=== PATIENT | female | born 1940 | race Caucasian/White ===

== ENCOUNTER 2017-07-19 10:56 | Day surgery (SDC) | payer MEDICARE, BC ==
[~2017-07-19 10:56] MED LIST: ALPRAZolam 0.25 MG TAB PO PRN; ASPIRIN 325 MG TAB PO STA; SODIUM CHLORIDE 0.9% 1,000 ML in EMPTY BAG 1 BAG IV ONE
[2017-07-19] MEDS ORDERED: METOPROLOL TARTRATE 25 MG TAB PO STA (11:27)
[2017-07-19] MEDS ORDERED: LISINOPRIL 20 MG TAB PO STA (11:27)
[2017-07-19] MEDS ORDERED: amLODIPine 5 MG TAB PO STA (11:27)
[2017-07-19] MEDS ORDERED: amLODIPine 5 MG TAB ONE (11:29)
[2017-07-19] MEDS ORDERED: METOPROLOL TARTRATE 50 MG TAB ONE (11:30)
[2017-07-19 11:49] LABS: Glucose,Whole Blood 160 mg/dL (75-99)
[2017-07-19] MEDS ORDERED: MIDAZOLAM 2 MG/2 ML VIAL IV ONE (12:25)
[2017-07-19] MEDS ORDERED: LIDOCAINE 2% INJ 20 MG/ML SQ ONE (12:28)
[2017-07-19] MEDS ORDERED: fentaNYL (PF) 50 MCG/ML 2 ML AMP IV ONE (12:31)
[2017-07-19] MEDS ORDERED: IODIXANOL 320 MG/ML 100 ML INTRAARTER ONE (12:35)
[2017-07-19] MEDS ORDERED: SODIUM CHLORIDE 0.9% 1,000 ML IV SCH (12:45)
[2017-07-19] MEDS ORDERED: ENALAPRILAT 1.25 MG/ML 1 ML VIAL ONE (13:00)
[2017-07-19] MEDS ORDERED: hydrALAZINE HCL 20 MG/ML 1 ML VIAL ONE (13:00)
--- NOTE | 2017-07-19 13:54 | IR ---
Fluoroscopy HISTORY: Pain bilateral legs 1.6 minutes fluoroscopy time supplied to the referring clinician. 114 intraoperative C-arm images do cument the procedure. See dictated report from cardiology.
[2017-07-19 15:48] VITALS: BMI 22.0
[2017-07-19 17:18] LABS: Glucose,Whole Blood 189 mg/dL (75-99)
[2017-07-19 20:26] VITALS: BP 142/63; PULSE 68; RESP 18; TEMP 98
--- NOTE | 2017-07-20 08:27 | AN ---
ANGIOGRAPHY REPORT DATE OF SERVICE: 07/19/2017 PERFORMING PHYSICIAN: Slava Delarosa MD, policy writer. PROCEDURE PERFORMED: 1. An abdominal aortogram. 2. Bilateral lower extremities runoff. INDICATION: This is a pleasant 77-year-old female patient who is known to have severe PAD, who was experiencing bilateral lower extremities intermittent claudication and was brought today to undergo a peripheral angiogram. APPROACH: Right common femoral artery. COMPLICATION: None. LEVEL OF SEDATION: Moderate with sedation length of 15 minutes. PROCEDURE DESCRIPTION: After obtaining an informed consent, the patient was brought to cardiac labor operator. The right common femoral artery was cannulated using micropuncture technique and a micropuncture wire passed easily. Then a 5-Anguillan sheath in the right common femoral artery. After that, I did an abdominal aortogram and bilateral lower extremity runoff using 5-Anguillan pigtail catheter. The procedure was completed without any complication. SELECTIVE PERIPHERAL ANGIOGRAM: 1. The aorta has mild disease only. 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 2. Common iliac arteries: The right and left common iliac arteries are angiographically normal. 3. Internal iliac arteries: The right and left internal iliac arteries are patent. 4. External iliac arteries: The right and left external iliac arteries are patent. 5. Common femoral arteries: The right and left common femoral arteries are patent. 6. Profunda: The right and left profunda are normal angiographically. 7. The SFA: The right SFA has critical lesion in the proximal portion, which seems to be in-stent restenosis and the left SFA is occluded in the midportion as well. 8. Popliteal: The right and left popliteal appeared to have moderate disease. 9. Below the knee: There are one-vessel runoff below the knee bilaterally with peroneal. CONCLUSION: 1. Mild aortoiliac disease with patent stent in the left common iliac artery. 2. 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 3. Severe dvzmm-sar-novd disease with one-vessel runoff. POSTPROCEDURE MANAGEMENT: The patient will be scheduled to undergo a DRY PLASTERER HELPER of the right and left SFA. MMODL / IJN: [id number] /
== END 2017-07-19 20:15 | disposition home health service (06) ==
LOC: CATHCVL 10:56 → 3OBS 12:35 → CATHCVL 20:15
PROVIDERS: ATTEND Internal Medicine Interventional Cardiology
DX: I70.213 Atherosclerosis of native arteries of extremities with intermittent claudication, bilateral legs (principal); T82.856A Stenosis of peripheral vascular stent, initial encounter; I71.9 Aortic aneurysm of unspecified site, without rupture; I25.10 Atherosclerotic heart disease of native coronary artery without angina pectoris; I10 Essential (primary) hypertension; E78.2 Mixed hyperlipidemia; Z95.820 Peripheral vascular angioplasty status with implants and grafts; Z95.1 Presence of aortocoronary bypass graft; E03.9 Hypothyroidism, unspecified; E11.9 Type 2 diabetes mellitus without complications; Z79.84 Long term (current) use of oral hypoglycemic drugs; I77.9 Disorder of arteries and arterioles, unspecified; Z79.02 Long term (current) use of antithrombotics/antiplatelets; Z79.82 Long term (current) use of aspirin; Z79.1 Long term (current) use of non-steroidal anti-inflammatories (NSAID); Z79.899 Other long term (current) drug therapy; Z88.2 Allergy status to sulfonamides
CPT/HCPCS: 36200; 75625; 75716; C1894; C1769 ×4; J2001; J2250; J0360; Q9967; J3010

== ENCOUNTER 2017-08-15 14:03 | Day surgery (SDC) | payer MEDICARE, BC ==
[~2017-08-15 14:03] MED LIST changes: -ALPRAZolam 0.25 MG TAB PO PRN; -ASPIRIN 325 MG TAB PO STA
[2017-08-15 14:31] LABS: Glucose,Whole Blood 150 mg/dL (75-99)
[2017-08-15] MEDS ORDERED: MIDAZOLAM 2 MG/2 ML VIAL IVP ONE (15:52)
[2017-08-15] MEDS ORDERED: LIDOCAINE 2% INJ 20 MG/ML SQ ONE (15:55)
[2017-08-15] MEDS ORDERED: SODIUM CHLORIDE 0.9% 1,000 ML IV ONE (15:55)
[2017-08-15] MEDS ORDERED: HEPARIN SODIUM 1,000 UN/ML (10ML VL) IV ONE ×2 (15:57→16:56)
[2017-08-15] MEDS ORDERED: fentaNYL (PF) 50 MCG/ML 2 ML AMP IVP ONE (16:25)
[2017-08-15] MEDS ORDERED: hydrALAZINE HCL 20 MG/ML 1 ML VIAL IV ONE (17:03)
[2017-08-15] MEDS ORDERED: NITROGLYCERIN SL TABS 0.4 MG TAB SUBLINGUAL PRN (17:33)
[2017-08-15] MEDS ORDERED: IODIXANOL 320 MG/ML 100 ML INTRAARTER ONE (17:33)
[2017-08-15] MEDS ORDERED: ISOSORBIDE MONONITRATE ER 30 MG TAB.ER.24H PO PRN (17:33)
[2017-08-15] MEDS ORDERED: CLOPIDOGREL 75 MG TAB PO ONE (17:36)
[2017-08-15] MEDS ORDERED: SODIUM CHLORIDE 0.9% 1,000 ML IV SCH (17:45)
--- NOTE | 2017-08-15 18:21 | LTR ---
DATE OF SERVICE: August 15, [address] Enriquez: Ms. Meagan Lees underwent successful balloon angioplasty and stenting of the left femoral artery with good angiographic results and without any complication. Thank you for allowing me to participate in her care. MMANNMARIEL / IJN: [id number] /
[2017-08-15 20:52] LABS: Glucose,Whole Blood 225 mg/dL (75-99)
[2017-08-15] MEDS ORDERED: PRAVASTATIN SODIUM 80 MG TAB PO SCH (21:00)
[2017-08-15 21:06] VITALS: TEMP 97.5; BMI 21.1
[2017-08-15] MEDS: IBUPROFEN 600 MG TAB PO PRN (21:21)
--- NOTE | 2017-08-15 21:21 | AN ---
ANGIOGRAPHY REPORT DATE OF SERVICE: August 15, 2017 PERFORMING PHYSICIAN: Slava Delarosa MD, it programmer analyst. PROCEDURE PERFORMED: 1. Selective left [id number]-[id number]-rdva angiogram. 2. Selective left popliteal angiogram. 3. Successful balloon angioplasty of the left popliteal artery. 4. Successful stenting of the left popliteal artery using 7.0 x 120 and 7.0 x 120 mm Zilver PTX drug coated stent with good angiographic results. 5. An attempted atherectomy of the left SFA. 6. IVUS of the left SFA and left popliteal. INDICATION: This is a pleasant 77-year-old female patient who is known to have peripheral arterial disease and she was experiencing bilateral lower extremities intermittent claudication. She underwent a peripheral angiogram and that revealed critical right SFA and occluded left SFA. She was brought today to undergo an intervention on the left SFA. APPROACH: Right common femoral artery. COMPLICATION: None. LEVEL OF SEDATION: Moderate with sedation length of 1 hour and 33 minutes. PROCEDURE DESCRIPTION: After obtaining informed consent, the patient was brought to cardiac geophysical laboratory director. The right common femoral artery was cannulated using micropuncture technique and a micropuncture wire passed easily. Then I placed a 6-Portuguese sheath 11 cm in the right common femoral artery. At that point, anticoagulation was initiated using heparin and the patient was given weight-based heparin. Subsequently I did select the left SFA using 5-Portuguese rim catheter with 035 advantage wire. Then I did exchange my 11 cm sheath into 55 cm sheath using the 035 advantage wire. After that I did selective left fcvih-xsb-uzos angiogram, selective left popliteal angiogram, selective left SFA angiogram. After that I did cross the chronic total occlusion of the mid left SFA using an 018 wire. After that, I did inject through the SFA distal to the PROMOTION MANAGER cap to prove that I was in the true lumen. After that, I did attempt doing atherectomy of the left SFA using the TurboHawk device. I was unable to advance the device. At that point, I did balloon angioplasty initially using 4.0 x 200 mm balloon and then using 5.0 x 200 AngioSculpt balloon. 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 At that point I decided to do stenting of the left SFA, so I did deploy a 2 7 mm stent by 120 mm stent of Silver PTX drug coated stent. Both stents were positioned under fluoroscopy guidance and deployed. I postdilated the stent using 6 mm bone. The following angiogram showed good angiographic results. For the left popliteal lesion, I did balloon angioplasty using a drug coated balloon and that was 6 mm drug coated balloon with a reasonable angiographic results. There was a lesion proximal in the very proximal left SFA just proximal to the proximal stent and there was an outflow dissection. I did balloon angioplasty using 5 mm drug coated balloon. The following angiogram continues to show dissection but was non flow- limiting dissection. At that point, I decided to leave that alone. The procedure was completed without any complication. I did exchange my 55 cm sheath into 11 cm sheath using the 035 advantage wire. The procedure was completed without any complication. POST PROCEDURE MANAGEMENT: 1. Dual anti-platelet therapy. 2. Risk factors modifications. 3. Follow up with the patient. MMODL / IJN: [id number] /
[2017-08-16] MEDS ORDERED: ATROPINE SULFATE 0.1 MG/ML 10ML SYRINGE ONE (00:07)
[2017-08-16] MEDS: IBUPROFEN 600 MG TAB PO PRN (02:40)
[2017-08-16 05:55] LABS: Glucose,Whole Blood 164 mg/dL (75-99)
[2017-08-16 05:58] LABS: Glucose,Whole Blood 165 mg/dL (75-99)
[2017-08-16] MEDS ORDERED: LEVOTHYROXINE 88 MCG TAB PO SCH (06:30)
[2017-08-16] MEDS ORDERED: INSULIN ASPART 100 UNIT/ML 1 ML 10 ML VIAL SQ SCH (07:30)
[2017-08-16] MEDS ORDERED: PANTOPRAZOLE 40 MG TABLET PO SCH (07:30)
[2017-08-16 07:49] VITALS: BP 162/67; PULSE 80; RESP 16
[2017-08-16] MEDS ORDERED: CLOPIDOGREL 75 MG TAB PO SCH ×2 (09:00)
[2017-08-16] MEDS ORDERED: ASPIRIN 325 MG TAB PO SCH ×2 (09:00)
[2017-08-16] MEDS ORDERED: LISINOPRIL 20 MG TAB PO SCH (09:00)
[2017-08-16] MEDS ORDERED: METOPROLOL TARTRATE 25 MG TAB PO SCH (09:00)
[2017-08-16] MEDS ORDERED: amLODIPine 5 MG TAB PO SCH (09:00)
[2017-08-16] MEDS ORDERED: LORATADINE 10 MG TAB PO SCH (09:00)
[2017-08-16] MEDS ORDERED: CITALOPRAM HYDROBROMIDE 20 MG TAB PO SCH (09:00)
[2017-08-16] MEDS ORDERED: MULTIVITAMINS, THERA 1 EACH TAB PO SCH (12:00)
[2017-08-16] MEDS ORDERED: CHOLECALCIFEROL 1,000 UNIT TAB PO SCH (12:00)
[2017-08-16 12:51] LABS: Hemoglobin A1C 8.4 % (4.0-6.0)
--- NOTE | 2017-08-16 13:07 | DS ---
DISCHARGE SUMMARY DATE OF ADMISSION: 08/15/2017. DATE OF DISCHARGE: 08/16/2017 BRIEF HISTORY: This is a pleasant 77-year-old female patient who was admitted to the hospital yesterday and underwent successful crossing chronic total occlusion of the left SFA along with successful balloon angioplasty and stenting of the left SFA with good angiographic results. The procedure was performed from the right groin which is soft and nontender and without any bruises. The patient is going to be discharged home on dual anti-platelet therapy and statin and I will follow up with the patient next week in the office. MMODL / IJN: [id number] /
--- NOTE | 2017-08-16 15:28 | IR ---
Fluoroscopy HISTORY:chronic occlusion, peripheral vascular disease 25 minutes fluoroscopy time supplied to the referring clinician. 900 intraoperative C-arm images doc ument the procedure. See dictated report from cardiology.
== END 2017-08-16 10:08 | disposition home or self-care (01) ==
LOC: CATHCVL 14:03 → 6SEL 17:29 → CATHCVL 08-16 10:08
PROVIDERS: ATTEND Internal Medicine Interventional Cardiology
DX: I70.213 Atherosclerosis of native arteries of extremities with intermittent claudication, bilateral legs (principal); I77.77 Dissection of artery of lower extremity; I25.10 Atherosclerotic heart disease of native coronary artery without angina pectoris; I10 Essential (primary) hypertension; E11.9 Type 2 diabetes mellitus without complications; E78.5 Hyperlipidemia, unspecified; I47.1 Supraventricular tachycardia; Z95.1 Presence of aortocoronary bypass graft; Z82.49 Family history of ischemic heart disease and other diseases of the circulatory system; Z79.84 Long term (current) use of oral hypoglycemic drugs; Z79.02 Long term (current) use of antithrombotics/antiplatelets; Z79.82 Long term (current) use of aspirin; Z79.899 Other long term (current) drug therapy; Z88.2 Allergy status to sulfonamides
CPT/HCPCS: 37226 ×2; 37252; 82565; 83036; C1894 ×2; C1725 ×3; C1769 ×5; C1714; C1753; C2623; C1874; J2001; J2250; J0360; Q9967; J3010; J1644

== ENCOUNTER 2020-08-03 14:55 | Inpatient (IN) | payer MEDICARE, BC ==
[2020-08-03] MEDS ORDERED: SODIUM CHLORIDE 0.9% 500 ML 500 ML IV STA (15:14)
[2020-08-03] MEDS ORDERED: ADENOSINE 3 MG/ML 2 ML VIAL IVP STA (15:14)
[2020-08-03 15:29] LABS: Basophils # (A) 0.1 k/uL (0-0.2); Basophils % (A) 1 %; Eosinophils # (A) 0.2 k/uL (0-0.7); Eosinophils % (A) 2 %; HCT 41.6 % (34.0-46.0); HGB 13.5 gm/dL (11.4-16.0); Lymphocytes # (A) 1.9 k/uL (1.0-4.8); Lymphocytes % (A) 22 %; MCH 29.5 pg (25.0-35.0); MCHC 32.5 g/dL (31.0-37.0); MCV 90.9 fL (80.0-100.0); Mean Platelet Volume 9.6; Monocytes # (A) 0.5 k/uL (0-1.0); Monocytes % (A) 5 %; Neutrophils # (A) 6.2 k/uL (1.3-7.7); Neutrophils % (A) 70 %; Platelet Count 257 k/uL (150-450); RBC 4.57 m/uL (3.80-5.40); RDW 13.6 % (11.5-15.5); WBC 8.9 k/uL (3.8-10.6)
[2020-08-03 15:40] LABS: Partial Thromboplastin Time 22.3 sec (22.0-30.0)
--- NOTE | 2020-08-03 15:40 | ED ---
General Adult HPI - General Chief complaint: Chest Pain Stated complaint: possible stemi Time Seen by Provider: 08/03/20 14:59 Source: patient, EMS, RN notes reviewed, old records reviewed Mode of arrival: EMS Limitations: no limitations - History of Present Illness Initial comments: 80-year-old female presenting for evaluation of chest pain. Patient was transported by EMS, given aspirin and nitroglycerin. She was found to be in a neuro complex tachycardia with ischemic changes. She was transported as a priority 1. She had no active chest pain during transport for upon arrival to the emergency department. No associated dyspnea. She states that when her chest pain began approximately 3 hours prior to arrival she had some nausea and diaphoresis associated with this. She has a history of CAD status post CABG. - Related Data Home Medications Medication Instructions Recorded Confirmed Benazepril HCl [Lotensin] 20 mg PO DAILY 10/21/14 08/13/17 Citalopram Hydrobromide [CeleXA] 20 mg PO DAILY 10/21/14 08/13/17 Levothyroxine Sodium [Synthroid] 88 mcg PO DAILY 10/21/14 08/13/17 Pantoprazole Sodium 40 mg PO DAILY 10/21/14 08/15/17 Pravastatin Sodium [Pravachol] 80 mg PO HS 10/21/14 08/15/17 amLODIPine BESYLATE [Norvasc] 5 mg PO DAILY 10/21/14 08/15/17 Aspirin 325 mg PO DAILY 02/23/16 08/13/17 glipiZIDE XL [Glucotrol XL] 5 mg PO DAILY 02/23/16 08/13/17 Ibuprofen 600 mg PO DAILY PRN 07/12/17 08/13/17 Isosorbide Mononitrate ER [Imdur] 30 mg PO DIRECTED PRN 07/12/17 08/13/17 Loratadine [Claritin] 10 mg PO DAILY 07/12/17 08/13/17 Metoprolol Tartrate [Lopressor] 25 mg PO DAILY 07/12/17 08/13/17 Cholecalciferol [Vitamin D3 (25 2,000 unit PO DAILY 08/13/17 08/15/17 Mcg = 1000 Iu)] Multivitamins, Thera [Multivitamin 1 tab PO DAILY 08/13/17 08/15/17 (formulary)] Previous Rx's Medication Instructions Recorded Clopidogrel [Plavix] 75 mg PO DAILY #90 tab 10/21/15 Nitroglycerin Sl Tabs [Nitrostat] 0.4 mg SUBLINGUAL Q5M PRN #25 tab 02/25/16 Allergies Allergy/AdvReac Type Severity Reaction Status Date / Time shellfish derived [Shellfish] Allergy Nausea & Verified 08/13/17 11:15 Vomiting & Diarrhea Sulfa (Sulfonamide Allergy Rash/Hives Verified 08/13/17 11:15 Antibiotics) Review of Systems ROS Statement: Those systems with pertinent positive or pertinent negative responses have been documented in the HPI. ROS Other: All systems not noted in ROS Statement are negative. Past Medical History Past Medical History: Coronary Artery Disease (CAD), Chest Pain / Angina, CVA/TIA, Diabetes Mellitus, GERD/Reflux, Hearing Disorder / Deafness, Hyperlipidemia, Hypertension, Osteoarthritis (OA), Thyroid Disorder, Vascular Disorder Additional Past Medical History / Comment(s): HX FATTY LIVER, SINUS PROBLEMS AT TIMES, SEASONAL ALLERGIES, TIA, MURMUR. PAIN IN RT THIGH, LT CALF WITH WALKING. History of Any Multi-Drug Resistant Organisms: None Reported Past Surgical History: Coronary Bypass/CABG, Heart Catheterization, Hysterectomy, Orthopedic Surgery, Tubal Ligation Additional Past Surgical History / Comment(s): RIGHT KNEE SURGERY, CATARACT SURGERY, ABD AORTOGRAM W/ RUNOFF, LT ILIAC ARTERY ANGIOGRAM W/STENT X4. CABG-5 VESSELS. Past Anesthesia/Blood Transfusion Reactions: No Reported Reaction Past Psychological History: Anxiety, Depression Smoking Status: Never smoker Past Alcohol Use History: Rare Past Drug Use History: None Reported - Past Family History Father Family Medical History: Coronary Artery Disease (CAD) Sister(s) Family Medical History: CVA/TIA, Deep Vein Thrombosis (DVT) General Exam Limitations: no limitations General appearance: alert, appears intoxicated Head exam: Present: atraumatic, normocephalic Eye exam: Present: normal appearance, PERRL ENT exam: Present: normal exam Neck exam: Present: normal inspection. Absent: tenderness, meningismus Respiratory exam: Present: normal lung sounds bilaterally. Absent: respiratory distress, wheezes Cardiovascular Exam: Present: normal rhythm, tachycardia GI/Abdominal exam: Present: soft. Absent: distended, tenderness, guarding Extremities exam: Present: normal inspection, normal capillary refill. Absent: pedal edema, calf tenderness Neurological exam: Present: alert, oriented X3, CN II-XII intact. Absent: motor sensory deficit Psychiatric exam: Present: normal affect, normal mood Skin exam: Present: warm, dry, intact. Absent: cyanosis, diaphoretic Course Vital Signs 08/03/20 14:56 Temperature 98.2 F Pulse Rate 137 H Respiratory 18 Rate Blood Pressure 164/96 O2 Sat by Pulse 96 Oximetry - Reevaluation(s) Reevaluation #1: 08/03/20 15:39 Patient given 6 mg of adenosine, converts to sinus rhythm. Reevaluation #2: 08/03/20 15:[address] Patterson who will admit EKG Findings - EKG Comments: EKG Findings:: EKG obtained at 15 00, sinus tachycardia although I suspect this is SVT, this is no complex tachycardia, rate of 140, there is no ischemic change in the precordial leads, no ST segment elevation. I do not see a P wave., QRS duration 82, QTC 439. Repeat EKG at 1517, sinus rhythm with first-degree AV block rate of 78, TX interval 302, QRS duration 92, QTC 458, improved depression in the precordial leads no ST segment elevation. Medical Decision Making - Medical Decision Making 80-year-old female sitting with episode of chest pain, and tachycardia dysrhythmia. Initial EKG showing ischemic changes with ST segment depression in the precordial leads, this is fast narrow complex tachycardia, rate of 140. I suspect this was SVT or atrial flutter with 2-1. Patient was given 6 g of adenosine and converted to sinus rhythm with significantly improved ischemic changes. She remained chest pain-free while in the emergency department, a pressure stable. Initial laboratory testing reveals normal CBC, normal CMP, minimal BNP elevation at 2200, chest x-ray is clear with no clinical findings of acute CHF. Case has been discussed with Dr. Patterson who will admit. She will be admitted for telemetry, cardiology consultation. Diagnosis: SVT, unstable angina. - Lab Data Result diagrams: 08/03/20 15:18 08/03/20 15:18 Lab Results 08/03/20 08/03/20 08/03/20 Range/Units 15:18 15:18 15:18 WBC 8.9 (3.8-10.6) k/uL RBC 4.57 (3.80-5.40) m/uL Hgb 13.5 (11.4-16.0) gm/dL Hct 41.6 (34.0-46.0) % MCV 90.9 (80.0-100.0) fL MCH 29.5 (25.0-35.0) pg MCHC 32.5 (31.0-37.0) g/dL RDW 13.6 (11.5-15.5) % Plt Count 257 (150-450) k/uL MPV 9.6 Neutrophils % 70 % Lymphocytes % 22 % Monocytes % 5 % Eosinophils % 2 % Basophils % 1 % Neutrophils # 6.2 (1.3-7.7) k/uL Lymphocytes # 1.9 (1.0-4.8) k/uL Monocytes # 0.5 (0-1.0) k/uL Eosinophils # 0.2 (0-0.7) k/uL Basophils # 0.1 (0-0.2) k/uL PT 11.0 (9.0-12.0) sec INR 1.0 (<1.2) APTT 22.3 (22.0-30.0) sec Sodium 134 L (137-145) mmol/L Potassium 4.2 (3.5-5.1) mmol/L Chloride 99 (98-107) mmol/L Carbon Dioxide 25 (22-30) mmol/L Anion Gap 10 mmol/L BUN 18 H (7-17) mg/dL Creatinine 0.61 (0.52-1.04) mg/dL Est GFR (CKD-EPI)AfAm >90 (>60 ml/min/1.73 sqM) Est GFR (CKD-EPI)NonAf 85 (>60 ml/min/1.73 sqM) Glucose 312 H (74-99) mg/dL Calcium 9.3 (8.4-10.2) mg/dL Magnesium 1.6 (1.6-2.3) mg/dL Total Bilirubin 0.4 (0.2-1.3) mg/dL AST 35 (14-36) U/L ALT 22 (4-34) U/L Alkaline Phosphatase 53 (38-126) U/L Troponin I (0.000-0.034) ng/mL NT-Pro-B Natriuret Pep pg/mL Total Protein 7.8 (6.3-8.2) g/dL Albumin 4.3 (3.5-5.0) g/dL Amylase 47 (30-110) U/L 08/03/20 08/03/20 Range/Units 15:18 15:18 WBC (3.8-10.6) k/uL RBC (3.80-5.40) m/uL Hgb (11.4-16.0) gm/dL Hct (34.0-46.0) % MCV (80.0-100.0) fL MCH (25.0-35.0) pg MCHC (31.0-37.0) g/dL RDW (11.5-15.5) % Plt Count (150-450) k/uL MPV Neutrophils % % Lymphocytes % % Monocytes % % Eosinophils % % Basophils % % Neutrophils # (1.3-7.7) k/uL Lymphocytes # (1.0-4.8) k/uL Monocytes # (0-1.0) k/uL Eosinophils # (0-0.7) k/uL Basophils # (0-0.2) k/uL PT (9.0-12.0) sec INR (<1.2) APTT (22.0-30.0) sec Sodium (137-145) mmol/L Potassium (3.5-5.1) mmol/L Chloride (98-107) mmol/L Carbon Dioxide (22-30) mmol/L Anion Gap mmol/L BUN (7-17) mg/dL Creatinine (0.52-1.04) mg/dL Est GFR (CKD-EPI)AfAm (>60 ml/min/1.73 sqM) Est GFR (CKD-EPI)NonAf (>60 ml/min/1.73 sqM) Glucose (74-99) mg/dL Calcium (8.4-10.2) mg/dL Magnesium (1.6-2.3) mg/dL Total Bilirubin (0.2-1.3) mg/dL AST (14-36) U/L ALT (4-34) U/L Alkaline Phosphatase (38-126) U/L Troponin I 0.029 (0.000-0.034) ng/mL NT-Pro-B Natriuret Pep 2200 pg/mL Total Protein (6.3-8.2) g/dL Albumin (3.5-5.0) g/dL Amylase (30-110) U/L Critical Care Time Critical Care Time: Yes Total Critical Care Time: 35 Disposition Clinical Impression: SVT (supraventricular tachycardia), Unstable angina pectoris Disposition: ADMITTED IP TO THIS [facility] Condition: Stable Is patient prescribed a controlled substance at d/c from ED?: No Referrals: Miguelito Enriquez DO [Primary Care Provider] - 1-2 days Decision to Admit Reason: Admit from EC Decision Date: 08/03/20 Decision Time: 16:16
[2020-08-03 15:41] LABS: ALT 22 U/L (4-34); AST 35 U/L (14-36); African American GFR (CKD) >90 (>60 ml/min/1.73 sqM); Albumin 4.3 g/dL (3.5-5.0); Alkaline Phosphatase 53 U/L (38-126); Amylase 47 U/L (30-110); Anion Gap 10 mmol/L; Blood Urea Nitrogen 18 mg/dL (7-17); Calcium 9.3 mg/dL (8.4-10.2); Carbon Dioxide 25 mmol/L (22-30); Chloride 99 mmol/L (98-107); Glucose 312 mg/dL (74-99); Magnesium 1.6 mg/dL (1.6-2.3); Non-African American GFR(CKD) 85 (>60 ml/min/1.73 sqM); Potassium 4.2 mmol/L (3.5-5.1); Sodium 134 mmol/L (137-145); Total Bilirubin 0.4 mg/dL (0.2-1.3); Total Protein 7.8 g/dL (6.3-8.2)
--- NOTE | 2020-08-03 15:41 | XR ---
EXAMINATION TYPE: XR chest 1V portable DATE OF EXAM: 08/03/2020 Comparison: 02/23/2016 Clinical History: 80-year-old female chest pain Findings: Pacing pads have been placed on the chest. Median sternotomy wires are present. Heart upper limits of normal in size. Atherosclerotic arch calcifications. No consolidation or pleural effusion. Cholecyst ectomy clips. IMPRESSION: No acute cardiopulmonary process.
[2020-08-03] MEDS ORDERED: HEPARIN SODIUM,PORCINE 5,000 UNIT/ML 1 ML VIAL IV PRN (16:12)
[2020-08-03] MEDS ORDERED: HEPARIN SODIUM,PORCINE 5,000 UNIT/ML 1 ML VIAL IV ONE (16:12)
[2020-08-03] MEDS ORDERED: ACETAMINOPHEN TAB 325 MG TAB PO PRN (16:13)
[2020-08-03] MEDS ORDERED: NALOXONE 0.4 MG/ML 1 ML VIAL IV PRN (16:13)
[2020-08-03] MEDS ORDERED: MORPHINE SULFATE 4 MG/ML SYRINGE IV PRN (16:13)
[2020-08-03] MEDS ORDERED: ALPRAZolam 0.25 MG TAB PO PRN (17:08)
[2020-08-03] MEDS: SODIUM CHLORIDE 0.9% 1,000 ML IV SCH (17:27)
[2020-08-03] MEDS: HEPARIN SOD,PORK IN 0.45% NACL 25,000 UNIT in 0.45% NACL 1 250ML.BAG IV SCH (17:27)
--- NOTE | 2020-08-03 18:00 | HP ---
HISTORY AND PHYSICAL DATE OF SERVICE: 08/03/2020 CHIEF COMPLAINTS: Chest pain and tachycardia. HISTORY OF PRESENT ILLNESS: This 80-year-old woman with a past medical history of multiple medical problems, including CAD, history of CVA, TIA, diabetes mellitus, GERD, hypertension, hyperlipidemia, history of DJD, being followed by Dr. Enriquez in the outpatient setting, was complaining of chest pain. The pain was felt in the anterior part of the chest. EMS gave some aspirin and nitroglycerin. The patient also had some wide- complex tachycardia with some ischemic changes. Patient was taken to [facility], and in the ER the patient was given adenosine, which actually slowed down the heart rate from 140 to normal, indicating the possibility of supraventricular tachycardia. The sodium was 134. Troponin was found to be 0.029, which is rather indeterminate, and a chest x-ray which was reviewed personally by me showed no acute abnormality. The patient was evaluated by Cardiology in 2018 with successful crossing of chronic total occlusion of the SFA along with successful balloon angioplasty and stenting of the left SFA with good angiographic results by Dr. Delarosa. There is no history of any fever, rigor or chills. No history of headache, loss of consciousness, seizures. PAST MEDICAL HISTORY: History of CAD, history of CVA, TIA, diabetes mellitus, GERD, peripheral vascular disease, DJD, CAD, CABG. HOME MEDICATIONS: Glipizide, Norvasc, Pravachol, Protonix, Nitrostat, multivitamins, Lopressor, Claritin, Synthroid, Imdur, Plavix, Celexa, vitamin D3, Lotensin, aspirin. ALLERGIES: SHELLFISH and SULFA. FAMILY HISTORY: History of CVA, TIA, DVT. SOCIAL HISTORY: No history of smoking. No history of alcohol intake. REVIEW OF SYSTEMS: ENT: Diminished hearing. Diminished vision. CARDIOVASCULAR SYSTEM: As mentioned earlier. RESPIRATORY SYSTEM: As mentioned earlier. GI: No nausea, vomiting. : No dysuria or retention. NERVOUS SYSTEM: As mentioned earlier. ALLERGY/IMMUNOLOGY: No asthma, hayfever. MUSCULOSKELETAL: As mentioned earlier. HEMATOLOGY/ONCOLOGY: No history of anemia. ENDOCRINE: As mentioned earlier. CONSTITUTIONAL: As mentioned earlier. DERMATOLOGY: Negative. RHEUMATOLOGY: Negative. PSYCHIATRY: As mentioned earlier. PHYSICAL EXAMINATION: Patient alert and oriented x3. Pulse is 78, blood pressure 152/84, respiration 18, temperature 98.1, pulse ox 98% on room air. HEENT: Conjunctivae normal. Oral mucosa moist. NECK: No jugular venous distention. No carotid bruit. No lymph node enlargement. CARDIOVASCULAR SYSTEM: S1, S2 muffled. No S3. No S4. RESPIRATORY SYSTEM: Breath sounds diminished at the bases. No rhonchi. No crackles. ABDOMEN: Soft, non-tender. No mass palpable. LEGS: No edema. No swelling. NERVOUS SYSTEM: Higher functions as mentioned earlier. Moves all 4 limbs. No focal motor or sensory deficit. LYMPHATICS: No lymph node palpable in neck, axillae or groin. SKIN: No ulcer, rash, bleeding. JOINTS: No active deforming arthropathy. LABS: CBC within normal limits. Sodium 134, potassium 4.2, BUN is 18, creatinine 0.61. ASSESSMENT: 1. Chest pain, possible unstable angina. 2. Possible supraventricular tachycardia with a 2:1 AV block, status post adenosine. 3. Hyponatremia. 4. Left bundle branch block on EKG. 5. Diabetes mellitus, type 2, with hyperglycemia. 6. History of coronary artery disease and coronary artery bypass grafting. 7. History of peripheral vascular disease. 8. History of cerebrovascular accident, transient ischemic attack. 9. Gastroesophageal reflux disease. 10.Hard of hearing. 11.Hypertension. 12.Hyperlipidemia. 13.History of degenerative joint disease. 14.History of hypothyroidism. 15.History of fatty liver. 16.History of cardiac catheterization. 17.History of hysterectomy. 18.History of anxiety, depression. 19.Mild protein-calorie malnutrition with body mass index of 17.6. 20.FULL CODE. RECOMMENDATIONS AND DISCUSSION: In this 80-year-old woman who presented with multiple medical issues, at this time I recommend to continue the current medications, continue symptomatic treatment, continue with IV heparin. Cardiology consultation. Will check TSH. NT-Pro-BNP was 2200. Rule out myocardial infarction. Prognosis is guarded because of the multiple complex medical issues. Continue current medications. A copy of this dictation is being forwarded to Dr. Enriquez, who is the primary physician. The home medications will be reconciled as far as they are confirmed. Discussed with the patient. MMODL / IJN: [id number] /
[2020-08-03 18:35] LABS: Glucose,Whole Blood 171 mg/dL (75-99)
[2020-08-03] MEDS ORDERED: LORATADINE 10 MG TAB PO PRN (19:40)
[2020-08-03] MEDS ORDERED: IBUPROFEN 600 MG TAB PO PRN (19:40)
[2020-08-03 20:07] LABS: Appearance,Urine Clear (Clear); Bilirubin,Urine Negative (Negative); Blood,Urine Negative (Negative); Color,Urine Colorless; Glucose,Urine (UA) Negative (Negative); Ketones,Urine Negative (Negative); Leukocyte Esterase,Urine Negative (Negative); Mucus,Urine Rare /hpf; Nitrite,Urine Negative (Negative); PH, Urine 6.5 (5.0-8.0); Protein,Urine 1+ (Negative); RBC,Urine <1 /hpf (0-5); Specific Gravity,Urine 1.005 (1.001-1.035); Urobilinogen,Urine <2.0 mg/dL (<2.0); WBC,Urine 3 /hpf (0-5)
[2020-08-03 20:15] LABS: Glucose,Whole Blood 115 mg/dL (75-99)
[2020-08-03 20:46] LABS: T4, Free (Free Thyroxine) 0.93 ng/dL (0.78-2.19)
[2020-08-03] MEDS: PRAVASTATIN SODIUM 80 MG TAB PO SCH (21:06)
[2020-08-03] MEDS: lisinopriL 20 MG TAB PO SCH (21:06)
[2020-08-03] MEDS: metFORMIN 500 MG TAB PO SCH (21:06)
[2020-08-03] MEDS: INSULIN ASPART (NovoLOG) 100 UNIT/ML VIAL SQ SCH (21:07)
[2020-08-03] MEDS: METOPROLOL TARTRATE 25 MG TAB PO SCH (21:07)
[2020-08-04 06:02] LABS: Glucose,Whole Blood 162 mg/dL (75-99)
[2020-08-04] MEDS: LEVOTHYROXINE 112 MCG TAB PO SCH (06:55)
[2020-08-04] MEDS: INSULIN ASPART (NovoLOG) 100 UNIT/ML VIAL SQ SCH ×4 (06:55→20:28)
[2020-08-04] MEDS: PANTOPRAZOLE 40 MG TABLET PO SCH (06:55)
[2020-08-04 08:17] LABS: Basophils # (A) 0.1 k/uL (0-0.2); Basophils % (A) 1 %; Eosinophils # (A) 0.3 k/uL (0-0.7); Eosinophils % (A) 4 %; HCT 40.6 % (34.0-46.0); HGB 12.7 gm/dL (11.4-16.0); Lymphocytes # (A) 3.1 k/uL (1.0-4.8); Lymphocytes % (A) 43 %; MCH 29.2 pg (25.0-35.0); MCHC 31.2 g/dL (31.0-37.0); MCV 93.6 fL (80.0-100.0); Mean Platelet Volume 9.8; Monocytes # (A) 0.3 k/uL (0-1.0); Monocytes % (A) 4 %; Neutrophils # (A) 3.3 k/uL (1.3-7.7); Neutrophils % (A) 46 %; Platelet Count 209 k/uL (150-450); RBC 4.34 m/uL (3.80-5.40); RDW 13.7 % (11.5-15.5); WBC 7.1 k/uL (3.8-10.6)
[2020-08-04 08:24] LABS: African American GFR (CKD) >90 (>60 ml/min/1.73 sqM); Anion Gap 9 mmol/L; Blood Urea Nitrogen 17 mg/dL (7-17); Calcium 9.2 mg/dL (8.4-10.2); Carbon Dioxide 25 mmol/L (22-30); Chloride 105 mmol/L (98-107); Glucose 157 mg/dL (74-99); Non-African American GFR(CKD) 82 (>60 ml/min/1.73 sqM); Potassium 4.9 mmol/L (3.5-5.1); Sodium 139 mmol/L (137-145)
[2020-08-04] MEDS: CHOLECALCIFEROL 25 MCG (1000 IU) TABLET PO SCH (08:34)
[2020-08-04] MEDS: METOPROLOL TARTRATE 25 MG TAB PO SCH ×2 (08:34→20:24)
[2020-08-04] MEDS: CITALOPRAM HYDROBROMIDE 20 MG TAB PO SCH (08:34)
[2020-08-04] MEDS: CLOPIDOGREL 75 MG TAB PO SCH (08:34)
[2020-08-04] MEDS: LINAGLIPTIN 5 MG TABLET PO SCH (08:34)
[2020-08-04] MEDS: MULTIVITAMINS, THERA 1 EACH TAB PO SCH (08:35)
[2020-08-04] MEDS: REPAGLINIDE 1 MG TAB PO SCH (08:35)
[2020-08-04] MEDS: metFORMIN 500 MG TAB PO SCH ×2 (08:35→20:23)
[2020-08-04] MEDS: PIOGLITAZONE 30 MG TAB PO SCH (08:36)
[2020-08-04] MEDS ORDERED: lisinopriL 20 MG TAB PO SCH (09:00)
[2020-08-04] MEDS ORDERED: amLODIPine 5 MG TAB PO SCH (09:00)
[2020-08-04 11:52] LABS: Glucose,Whole Blood 112 mg/dL (75-99)
[2020-08-04] MEDS: hydrALAZINE HCL 20 MG/ML 1 ML VIAL IVP PRN ×3 (13:06→23:22)
--- NOTE | 2020-08-04 14:15 | P.CRDCN ---
History of Present Illness Consult date: 08/04/20 Chief complaint: Chest pain History of present illness: This is a pleasant 80-year-old female patient with a past medical history significant for coronary artery disease and prior coronary artery bypass grafting, peripheral arterial disease and prior peripheral revascularization, diabetes and hypertension and dyslipidemia who requested to see as a consult for further evaluation of cardiac arrhythmia. The patient presented to the hospital mainly because of chest discomfort. She described the discomfort as a sharp and in the middle of the chest without any radiation. No symptoms of heart racing or fluttering. No symptoms of shortness of breath. No loss of consciousness or syncope. When she presented to the emergency department the first EKG showed narrow complex tachycardia consistent with SVT with a differential diagnosis of atrial flutter. Subsequently the patient was given adenosine and she was converted to normal sinus mechanism she has been maintaining normal sinus mechanism and as a matter of fact she has been in sinus bradycardia. She was at home receiving metoprolol at 25 mg by mouth twice a day and that was continued during her hospital stay. Beside that she was hypertensive. She was started on lisinopril. She was on Norvasc which I increase it to 10 mg by mouth daily. Also I added hydralazine by mouth to the current medical regimen because she is hypertensive throughout her hospital stay. Currently she is chest pain-free. The EKG was described above. The cardiac enzymes were checked and came in to be slightly abnormal and that could be related to the tachycardia when the patient presented to the hospital. When the patient was seen and examined this morning she is euvolemic. On examination she does have pansystolic murmur at the right upper sternal border and also by the apical area. Past Medical History Past Medical History: Coronary Artery Disease (CAD), Chest Pain / Angina, CVA/TIA, Diabetes Mellitus, GERD/Reflux, Hearing Disorder / Deafness, H yperlipidemia, Hypertension, Osteoarthritis (OA), Thyroid Disorder, Vascular Disorder Additional Past Medical History / Comment(s): HX FATTY LIVER, SINUS PROBLEMS AT TIMES, SEASONAL ALLERGIES, TIA, MURMUR. PAIN IN RT THIGH, LT CALF WITH WALKING. History of Any Multi-Drug Resistant Organisms: None Reported Past Surgical History: Coronary Bypass/CABG, Heart Catheterization, Hysterectomy, Orthopedic Surgery, Tubal Ligation Additional Past Surgical History / Comment(s): RIGHT KNEE SURGERY, CATARACT SURGERY, ABD AORTOGRAM W/ RUNOFF, LT ILIAC ARTERY ANGIOGRAM W/STENT X4. CABG-5 VESSELS. Past Anesthesia/Blood Transfusion Reactions: No Reported Reaction Past Psychological History: Anxiety, Depression Smoking Status: Never smoker Past Alcohol Use History: Rare Past Drug Use History: None Reported - Past Family History Father Family Medical History: Coronary Artery Disease (CAD) Sister(s) Family Medical History: CVA/TIA, Deep Vein Thrombosis (DVT) Medications and Allergies Home Medications Medication Instructions Recorded Confirmed Type Benazepril HCl [Lotensin] 20 mg PO DAILY 10/21/14 08/03/20 History Citalopram Hydrobromide [CeleXA] 20 mg PO DAILY 10/21/14 08/03/20 History Pantoprazole Sodium 40 mg PO DAILY 10/21/14 08/03/20 History Pravastatin Sodium [Pravachol] 80 mg PO HS 10/21/14 08/03/20 History amLODIPine BESYLATE [Norvasc] 5 mg PO DAILY 10/21/14 08/03/20 History Clopidogrel [Plavix] 75 mg PO DAILY #90 tab 10/21/15 08/03/20 Rx Aspirin 325 mg PO DAILY 02/23/16 08/03/20 History Ibuprofen 600 mg PO DAILY PRN 07/12/17 08/03/20 History Metoprolol Tartrate [Lopressor] 25 mg PO BID 07/12/17 08/03/20 History Multivitamins, Thera [Multivitamin 1 tab PO DAILY 08/13/17 08/03/20 History (formulary)] Cetirizine HCl 10 mg PO DAILY PRN 08/03/20 08/03/20 History Cholecalciferol [Vitamin D3 (25 25 mcg PO DAILY 08/03/20 08/03/20 History Mcg = 1000 Iu)] Fluticasone Nasal Bovey [Flonase 1 spray EA NOSTRIL DAILY PRN 08/03/20 08/03/20 History Nasal Bovey] Levothyroxine Sodium [Synthroid] 112 mcg PO DAILY 08/03/20 08/03/20 History Pioglitazone [Actos] 30 mg PO DAILY 08/03/20 08/03/20 History Repaglinide [Prandin] 0.5 mg PO DAILY 08/03/20 08/03/20 History metFORMIN HCL [Glucophage] 1,000 mg PO BID 08/03/20 08/03/20 History sitaGLIPtin [Januvia] 100 mg PO DAILY 08/03/20 08/03/20 History Allergies Allergy/AdvReac Type Severity Reaction Status Date / Time shellfish derived [Shellfish] Allergy Nausea & Verified 08/03/20 18:45 Vomiting & Diarrhea Sulfa (Sulfonamide Allergy Rash/Hives Verified 08/03/20 18:45 Antibiotics) Physical Exam Vitals: Vital Signs Temp Pulse Pulse Resp BP BP BP 08/04/20 13:02 204/82 08/04/20 11:54 97.9 F 55 L 16 203/82 08/04/20 08:00 98.3 F 57 L 16 197/85 08/04/20 04:00 97.9 F 53 L 17 165/78 08/04/20 00:00 97.9 F 50 L 17 181/86 08/03/20 20:00 97.6 F 63 17 218/87 08/03/20 18:50 63 190/77 198/81 08/03/20 17:15 57 L 18 166/62 08/03/20 17:00 98.1 F 78 18 152/84 08/03/20 14:56 98.2 F 137 H 18 164/96 Pulse Ox 08/04/20 13:02 08/04/20 11:54 95 08/04/20 08:00 95 08/04/20 04:00 99 08/04/20 00:00 96 08/03/20 20:00 97 08/03/20 18:50 92 L 08/03/20 17:15 98 08/03/20 17:00 98 08/03/20 14:56 96 Intake and Output 08/03/20 08/04/20 08/04/20 22:59 06:59 14:59 Intake Total 34.946 344.339 Output Total 650 Balance -650 34.946 344.339 Intake: Intake, IV Titration 34.946 47.339 Amount Heparin Sod,Pork in 0.45% 34.946 47.339 NaCl 25,000 unit In 0.45 % NaCl 1 250ml.bag @ 12 UNITS/KG/HR 4.899 mls/hr IV .Q24H [facility] Rx#: [id number] Oral 297 Output: Urine 650 Other: # Voids 1 2 Weight 40.823 kg 44.4 kg - Respiratory Respiratory: bilateral: CTA - Cardiovascular Rhythm: regular Heart sounds: normal: S1, S2 Abnormal Heart Sounds: systolic murmur Results 08/04/20 07:17 08/04/20 07:17 Cardiac Enzymes 08/03/20 08/03/20 08/03/20 Range/Units 15:18 15:18 18:36 AST 35 (14-36) U/L Troponin I 0.029 0.302 H* (0.000-0.034) ng/mL Coagulation 08/03/20 08/03/20 08/04/20 Range/Units 15:18 22:36 07:17 PT 11.0 (9.0-12.0) sec APTT 22.3 34.7 H 36.9 H (22.0-30.0) sec CBC 08/03/20 08/04/20 Range/Units 15:18 07:17 WBC 8.9 7.1 (3.8-10.6) k/uL RBC 4.57 4.34 (3.80-5.40) m/uL Hgb 13.5 12.7 (11.4-16.0) gm/dL Hct 41.6 40.6 (34.0-46.0) % Plt Count 257 209 (150-450) k/uL Comprehensive Metabolic Panel 08/03/20 08/04/20 Range/Units 15:18 07:17 Sodium 134 L 139 (137-145) mmol/L Potassium 4.2 4.9 (3.5-5.1) mmol/L Chloride 99 105 (98-107) mmol/L Carbon Dioxide 25 25 (22-30) mmol/L BUN 18 H 17 (7-17) mg/dL Creatinine 0.61 0.68 (0.52-1.04) mg/dL Glucose 312 H 157 H (74-99) mg/dL Calcium 9.3 9.2 (8.4-10.2) mg/dL AST 35 (14-36) U/L ALT 22 (4-34) U/L Alkaline Phosphatase 53 (38-126) U/L Total Protein 7.8 (6.3-8.2) g/dL Albumin 4.3 (3.5-5.0) g/dL Current Medications Generic Name Dose Route Start Last Admin Trade Name Freq PRN Reason Stop Dose Admin Acetaminophen 650 mg 02/16/21 16:13 Acetaminophen Tab 325 Mg Tab PO Q6HR PRN Mild Pain or Fever > 100.5 Alprazolam 0.25 mg 08/03/20 17:08 Alprazolam 0.25 Mg Tab PO TID PRN Anxiety Amlodipine Besylate 5 mg 08/04/20 21:00 Amlodipine 5 Mg Tab PO BID [facility] Cholecalciferol 25 mcg 08/04/20 09:00 08/04/20 08:34 Cholecalciferol 25 Mcg (1000 Iu) Tablet PO 25 mcg DAILY JANICE Administration Citalopram Hydrobromide 20 mg 08/04/20 09:00 08/04/20 08:34 Citalopram Hydrobromide 20 Mg Tab PO 20 mg DAILY JANICE Administration Clopidogrel Bisulfate 75 mg 08/04/20 09:00 08/04/20 08:34 Clopidogrel 75 Mg Tab PO 75 mg DAILY JANICE Administration Heparin Sodium (Porcine) 0 unit 08/03/20 16:12 Heparin Sodium,Porcine 5,000 Unit/Ml 1 Ml Vial IV PER PROTOCOL PRN Low PTT Protocol Hydralazine HCl 10 mg 08/04/20 12:57 08/04/20 13:06 Hydralazine Hcl 20 Mg/Ml 1 Ml Vial IVP 10 mg Q4HR PRN Administration Blood Pressure - High Heparin Sodium/Sodium Chloride 250 mls @ 4.899 mls/hr 08/03/20 16:15 08/04/20 08:52 25,000 unit/ Sodium Chloride IV 16 units/kg/hr .Q24H JANICE 6.532 mls/hr Titration Protocol 12 UNITS/KG/HR Sodium Chloride 1,000 mls @ 20 mls/hr 08/03/20 16:15 08/03/20 17:27 Saline 0.9% IV 20 mls/hr .Q24H JANICE Administration Ibuprofen 600 mg 08/03/20 19:40 Ibuprofen 600 Mg Tab PO DAILY PRN Pain Insulin Aspart 0 unit 08/03/20 21:00 08/04/20 11:58 Insulin Aspart (Novolog) 100 Unit/Ml Vial SQ Not Given ACHS JANICE Protocol Levothyroxine Sodium 112 mcg 08/04/20 06:30 08/04/20 06:55 Levothyroxine 112 Mcg Tab PO 112 mcg DAILY@0630 JANICE Administration Linagliptin 5 mg 08/04/20 09:00 02/17/21 08:34 Linagliptin 5 Mg Tablet PO 5 mg DAILY JANICE Administration Lisinopril 20 mg 08/03/20 21:00 08/03/20 21:06 Lisinopril 20 Mg Tab PO 20 mg HS JANICE Administration Loratadine 10 mg 08/03/20 19:40 Loratadine 10 Mg Tab PO DAILY PRN Allergy Symptoms Metformin HCl 1,000 mg 08/03/20 21:00 08/04/20 08:35 Metformin 500 Mg Tab PO 1,000 mg BID JANICE Administration Metoprolol Tartrate 25 mg 08/03/20 21:00 08/04/20 08:34 Metoprolol Tartrate 25 Mg Tab PO 25 mg BID JANICE Administration Morphine Sulfate 4 mg 08/03/20 16:13 Morphine Sulfate 4 Mg/Ml Syringe IV Q4HR PRN Severe Pain Multivitamins 1 each 08/04/20 09:00 08/04/20 08:35 Multivitamins, Thera 1 Each Tab PO 1 each DAILY JANICE Administration Naloxone HCl 0.2 mg 08/03/20 16:13 Naloxone 0.4 Mg/Ml 1 Ml Vial IV Q2M PRN Opioid Reversal Pantoprazole Sodium 40 mg 08/04/20 07:30 08/04/20 06:55 Pantoprazole 40 Mg Tablet PO 40 mg AC-BRKFST JANICE Administration Pioglitazone HCl 30 mg 08/04/20 09:00 08/04/20 08:36 Pioglitazone 30 Mg Tab PO 30 mg DAILY JANICE Administration Pravastatin Sodium 80 mg 08/03/20 21:00 08/03/20 21:06 Pravastatin Sodium 80 Mg Tab PO 80 mg HS JANICE Administration Repaglinide 0.5 mg 08/04/20 09:00 08/04/20 08:35 Repaglinide 1 Mg Tab PO 0.5 mg DAILY JANICE Administration Intake and Output 08/03/20 08/04/20 08/04/20 22:59 06:59 14:59 Intake Total 34.946 344.339 Output Total 650 Balance -650 34.946 344.339 Intake: Intake, IV Titration 34.946 47.339 Amount Heparin Sod,Pork in 0.45% 34.946 47.339 NaCl 25,000 unit In 0.45 % NaCl 1 250ml.bag @ 12 UNITS/KG/HR 4.899 mls/hr IV .Q24H JANICE Rx#: [id number] Oral 297 Output: Urine 650 Other: # Voids 1 2 Weight 40.823 kg 44.4 kg 08/04/20 07:17 08/04/20 07:17 Assessment and Plan Assessment: Assessment #1 chest discomfort which has resolved #2 mildly abnormal cardiac enzymes #3 cardiac arrhythmia, SVT with a differential diagnosis of atrial flutter #4 coronary artery disease and prior revascularization #5 peripheral arterial disease and prior vascular his elevation #6 hypertension emergency Plan #1 continue the current dose of metoprolol #2 increase the dose of Norvasc #3 continue lisinopril #4 add hydralazine to the current medical regimen #5 obtain an echocardiogram was Doppler #6 continue adjusting the blood pressure medications as needed #7 restart the patient back on aspirin #8 continue statin We'll continue following up with the patient
--- NOTE | 2020-08-04 15:57 | PN ---
PROGRESS NOTE DATE OF SERVICE: 08/04/2020 This 80-year-old woman was admitted with chest pain also had possible supraventricular tachycardia. Currently the patient has normal sinus rhythm. Cardiology has seen the patient and recommended current medications to increase the dose of Norvasc. The troponins were found to be 0.302, possibly indicating acute aes-DU-ktgokzf-elevation myocardial infarction. TSH is elevated but free T4 is normal. COVID-19 is negative. PHYSICAL EXAMINATION: Alert and oriented x3. Pulse 55, blood pressure 203/82, respirations 16, temperature 97.9, pulse ox 95% on room air. HEENT: Conjunctivae normal. NECK: No jugular venous distention. CARDIOVASCULAR: S1, S2 muffled. RESPIRATORY: Breath sounds diminished at the bases. No rhonchi. No crackles. ABDOMEN: Soft. LEGS: No edema, no swelling. NEVOUS SYSTEM: No focal deficits. LABS: CBC within normal limits. Sodium 139, potassium 4.9. ASSESSMENT: 1. Chest pain possible acute non ST segment elevation myocardial infarction with troponin 0.302. 2. Possible supraventricular tachycardia 2:1 AV block, status post adenosine. 3. Hyponatremia. 4. Left bundle block on EKG. 5. Diabetes mellitus type 2 with hyperglycemia. 6. Accelerated hypertension and hypertensive urgency. 7. History of coronary artery disease, coronary artery bypass grafting. 8. History of peripheral vascular disease. 9. History of cerebrovascular accident, transient ischemic attack. 10.Gastroesophageal reflux disease. 11.Hard of hearing. 12.Hypertension. 13.Hyperlipidemia. 14.History of degenerative joint disease. 15.History of hypothyroidism. 16.History of fatty liver. 17.History of cardiac catheterization. 18.History of hysterectomy. 19.History of anxiety, depression. 20.Mild protein calorie malnutrition with body mass index of 17.6. 21.NO CODE. RECOMMENDATIONS AND DISCUSSION: In this 80-year-old woman who presented with multiple complex medical issues, will continue to monitor symptomatic treatment. Otherwise, Norvasc has been added to the current regimen. IV heparin. Medical management. Prognosis guarded because of multiple complex medical issues. Further recommendations to follow. Cardiology input appreciated. MMODL / IJN: [id number] /
[2020-08-04 16:30] LABS: Glucose,Whole Blood 131 mg/dL (75-99)
[2020-08-04] MEDS: SODIUM CHLORIDE 0.9% 1,000 ML IV SCH (17:46)
[2020-08-04] MEDS: HEPARIN SOD,PORK IN 0.45% NACL 25,000 UNIT in 0.45% NACL 1 250ML.BAG IV SCH (20:05)
[2020-08-04] MEDS: lisinopriL 20 MG TAB PO SCH (20:24)
[2020-08-04] MEDS: amLODIPine 5 MG TAB PO SCH (20:24)
[2020-08-04] MEDS: PRAVASTATIN SODIUM 80 MG TAB PO SCH (20:24)
[2020-08-04 20:36] LABS: Glucose,Whole Blood 148 mg/dL (75-99)
[2020-08-05 06:37] LABS: Glucose,Whole Blood 144 mg/dL (75-99)
[2020-08-05] MEDS: PANTOPRAZOLE 40 MG TABLET PO SCH (06:51)
[2020-08-05] MEDS: INSULIN ASPART (NovoLOG) 100 UNIT/ML VIAL SQ SCH ×4 (06:51→21:07)
[2020-08-05] MEDS: LEVOTHYROXINE 112 MCG TAB PO SCH (06:51)
[2020-08-05] MEDS: CITALOPRAM HYDROBROMIDE 20 MG TAB PO SCH (07:50)
[2020-08-05] MEDS: CHOLECALCIFEROL 25 MCG (1000 IU) TABLET PO SCH ×3 (07:50→08:55)
[2020-08-05] MEDS: metFORMIN 500 MG TAB PO SCH ×2 (07:50→20:35)
[2020-08-05] MEDS: MULTIVITAMINS, THERA 1 EACH TAB PO SCH (07:50)
[2020-08-05] MEDS: ASPIRIN 81 MG PO SCH (07:50)
[2020-08-05] MEDS: LINAGLIPTIN 5 MG TABLET PO SCH (07:50)
[2020-08-05] MEDS: CLOPIDOGREL 75 MG TAB PO SCH (07:50)
[2020-08-05] MEDS: amLODIPine 5 MG TAB PO SCH ×2 (07:51→20:35)
[2020-08-05] MEDS: HEPARIN SOD,PORK IN 0.45% NACL 25,000 UNIT in 0.45% NACL 1 250ML.BAG IV SCH (07:51)
[2020-08-05] MEDS: PIOGLITAZONE 30 MG TAB PO SCH (07:51)
[2020-08-05] MEDS: REPAGLINIDE 1 MG TAB PO SCH (07:51)
[2020-08-05] MEDS: METOPROLOL TARTRATE 25 MG TAB PO SCH ×2 (07:51→20:35)
[2020-08-05 08:20] LABS: Basophils % (A) 1 %; Eosinophils % (A) 0 %; HCT 38.5 % (34.0-46.0); HGB 12.5 gm/dL (11.4-16.0); Lymphocytes # (A) 2.3 k/uL (1.0-4.8); Lymphocytes % (A) 30 %; MCH 29.3 pg (25.0-35.0); MCHC 32.5 g/dL (31.0-37.0); MCV 90.1 fL (80.0-100.0); Mean Platelet Volume 9.8; Monocytes # (A) 0.3 k/uL (0-1.0); Monocytes % (A) 4 %; Neutrophils # (A) 4.7 k/uL (1.3-7.7); Neutrophils % (A) 63 %; Platelet Count 225 k/uL (150-450); RBC 4.28 m/uL (3.80-5.40); RDW 13.9 % (11.5-15.5); WBC 7.5 k/uL (3.8-10.6)
[2020-08-05 08:59] LABS: African American GFR (CKD) >90 (>60 ml/min/1.73 sqM); Anion Gap 11 mmol/L; Blood Urea Nitrogen 18 mg/dL (7-17); Calcium 9.3 mg/dL (8.4-10.2); Carbon Dioxide 23 mmol/L (22-30); Chloride 101 mmol/L (98-107); Glucose 139 mg/dL (74-99); Non-African American GFR(CKD) 80 (>60 ml/min/1.73 sqM); Sodium 135 mmol/L (137-145)
--- NOTE | 2020-08-05 10:25 | P.PN ---
Subjective Progress Note Date: 08/05/20 Principal diagnosis: Coronary artery disease/cardiac arrhythmia This is an 80-year-old female patient with coronary artery disease and prior coronary revascularization as well as peripheral arterial disease and prior revascularization who was admitted to the hospital with symptoms of chest discomfort. During her hospital stay she did have multiple episodes of SVT with a differential diagnosis of atrial flutter. She converted to normal sinus mechanism and she has been maintaining normal sinus mechanism. Also her pressure has been elevated but it came in under good control after we did some adjustment of her medications. The cardiac enzymes were slightly elevated as we ll. The patient was seen today August [id number]. She is asymptomatic. She would like to go home. The blood pressure is better. No more episodes of cardiac arrhythmia. She is insisting on going home today. Objective - Vital Signs Vital signs: Vital Signs Temp 97.5 F L 08/05/20 07:48 Pulse 71 08/05/20 07:48 Resp 16 08/05/20 07:48 BP 146/65 08/05/20 07:48 Pulse Ox 94 L 08/05/20 07:48 Intake & Output 08/04/20 08/05/20 08/05/20 18:59 06:59 18:59 Intake Total 1142.365 228.607 Output Total 300 Balance 1142.365 -300 228.607 Weight 38 kg Intake: Intake, IV Titration 105.365 103.607 Amount Heparin Sod,Pork in 0.45% 105.365 103.607 NaCl 25,000 unit In 0.45 % NaCl 1 250ml.bag @ 12 UNITS/KG/HR 4.899 mls/hr IV .Q24H [facility] Rx#: [id number] Oral 1037 125 Output: Emesis 300 Other: Voiding Method Toilet Toilet # Voids 2 1 - Constitutional General appearance: Present: no acute distress - Respiratory Respiratory: bilateral: CTA - Cardiovascular Rhythm: regular Heart sounds: normal: S1, S2 Abnormal Heart Sounds: Present: systolic murmur - Labs CBC & Chem 7: 08/05/20 07:19 08/05/20 07:19 Labs: Abnormal Lab Results - Last 24 Hours (Table) 08/04/20 08/04/20 08/04/20 Range/Units 11:51 16:29 16:30 APTT 42.2 H (22.0-30.0) sec Sodium (137-145) mmol/L BUN (7-17) mg/dL Glucose (74-99) mg/dL POC Glucose (mg/dL) 112 H 131 H (75-99) mg/dL 08/04/20 08/04/20 08/05/20 Range/Units 20:23 23:35 06:22 APTT 55.8 H (22.0-30.0) sec Sodium (137-145) mmol/L BUN (7-17) mg/dL Glucose (74-99) mg/dL POC Glucose (mg/dL) 148 H 144 H (75-99) mg/dL 08/05/20 08/05/20 Range/Units 07:19 07:19 APTT 53.3 H (22.0-30.0) sec Sodium 135 L (137-145) mmol/L BUN 18 H (7-17) mg/dL Glucose 139 H (74-99) mg/dL POC Glucose (mg/dL) (75-99) mg/dL Assessment and Plan Assessment: Assessment #1 chest discomfort which has resolved #2 mildly abnormal cardiac enzymes #3 cardiac arrhythmia, SVT with a differential diagnosis of atrial flutter #4 coronary artery disease and prior revascularization #5 peripheral arterial disease and prior vascular his elevation #6 hypertension emergency Plan #1 continue the current medical regimen #2 I advised the patient to stay one more night but the patient would like to go home
[2020-08-05 11:04] VITALS: BMI 16.3
[2020-08-05 12:07] LABS: Glucose,Whole Blood 114 mg/dL (75-99)
--- NOTE | 2020-08-05 13:00 | ECHOF ---
Referral Reason:pos trops MEASUREMENTS -------- HEIGHT: 152.4 cm WEIGHT: 37.6 kg BP: 146/65 RVIDd: 3.0 cm (< 3.3) IVSd: 1.3 cm (0.6 - 1.1) LVIDd: 4.1 cm (3.9 - 5.3) LVPWd: 1.1 cm (0.6 - 1.1) IVSs: 1.8 cm LVIDs: 1.9 cm LVPWs: 1.5 cm LA Diam: 3.2 cm (2.7 - 3.8) LAESV Index (A-L): 31.51 ml/m Ao Diam: 3.0 cm (2.0 - 3.7) AV Cusp: 1.5 cm (1.5 - 2.6) MV EXCURSION: 9.588 mm (> 18.000) MV EF SLOPE: 17 mm/s (70 - 150) EPSS: 0.8 cm MV E James: 1.14 m/s MV DecT: 328 ms MV A James: 1.22 m/s MV E/A Ratio: 0.93 AV maxP.60 mmHg AV meanP.32 mmHg AR PHT: 519 ms RAP: 5.00 mmHg RVSP: 34.29 mmHg FINDINGS -------- Resting bradycardia (HR<60bpm). This was a technically adequate study. The left ventricular size is normal. There is mild concentric left ventricular hypertrophy. Overa ll left ventricular systolic function is normal with, an EF between 65 - 70 %. The right ventricle is normal in size. LA is midly dilated 29-33ml/m2. The right atrium is normal in size. Interatrial and interventricular septum intact. There is mild aortic valve sclerosis. There is andg-qt-pbxjdytz aortic regurgitation. There is mi ld aortic stenosis present. Peak/mean gradient across the Aortic Valve is 18.60mmHg / 10.32mmHg. The mitral valve leaflets are mildly thickened. Moderate mitral annular calcification present. Mi ld mitral regurgitation is present. Mild tricuspid regurgitation present. There is borderline pulmonary hypertension. The right ventr icular systolic pressure, as measured by Doppler, is 34.29mmHg. There is no pulmonic regurgitation present. The aortic root size is normal. Normal inferior vena cava with normal inspiratory collapse consistent with estimated right atrial pre ssure of 5 mmHg. There is no pericardial effusion. CONCLUSIONS -------- 1. The left ventricular size is normal. 2. There is mild concentric left ventricular hypertrophy. 3. Overall left ventricular systolic function is normal with, an EF between 65 - 70 %. 4. LA is midly dilated 29-33ml/m2. 5. There is mild aortic valve sclerosis. 6. There is recm-fj-wrsbuvhi aortic regurgitation. 7. There is mild aortic stenosis present. 8. Peak/mean gradient across the Aortic Valve is 18.60mmHg / 10.32mmHg. 9. The mitral valve leaflets are mildly thickened. 10. Moderate mitral annular calcification present. 11. Mild mitral regurgitation is present. 12. Mild tricuspid regurgitation present. 13. There is borderline pulmonary hypertension. 14. The right ventricular systolic pressure, as measured by Doppler, is 34.29mmHg. 15. There is no pulmonic regurgitation present. 16. There is no pericardial effusion. CARGO INSPECTOR: Gabriela Kohli RDCS
--- NOTE | 2020-08-05 15:15 | PN ---
PROGRESS NOTE DATE OF SERVICE: 08/05/2020. This 80-year-old woman who was admitted with chest pain, possible acute nji-TX-dkpnofy elevation myocardial infarction, also had hypertension. Patient also had possible supraventricular tachycardia. Patient being closely monitored. Cardiology recommending further evaluation. A 2D echo with Doppler was done today which was reported showing ejection fraction 65% to 70%. and multiple mild valvular abnormalities including mild aortic stenosis, mild mitral regurgitation and mild tricuspid regurgitation. No chest pain. No palpitations. No fever. PHYSICAL EXAMINATION: Alert and oriented x3. Pulse is 67, blood pressure 141/62, respirations 16, temperature 97.5, pulse ox 94% on room air. HEENT: Conjunctivae normal. NECK: No jugular venous distention. CARDIOVASCULAR: S1, S2 muffled. RESPIRATORY: Breath sounds diminished at the bases. No rhonchi, no crackles. ABDOMEN: Soft, nontender. LEGS: No edema, no swelling. NERVOUS SYSTEM: No focal deficits. LABS: CBC within normal. Accu-Cheks 114. ASSESSMENT: 1. Chest pain possible acute nyp-PB-xaysxwj-elevation myocardial infarction with troponin 0.302. 2. Possible supraventricular tachycardia 2-1 AV block, status post adenosine. 3. Hyponatremia. 4. Left bundle branch block on EKG. 5. Diabetes mellitus type 2 with hyperglycemia. 6. Accelerated hypertension, hypertensive urgency. 7. History of coronary artery disease, coronary artery bypass grafting. 8. History of peripheral vascular disease. 9. History of cerebrovascular accident, transient ischemic attack. 10.Gastroesophageal reflux disease. 11.Hard of hearing. 12.Hypertension. 13.Hyperlipidemia. 14.History of degenerative joint disease. 15.History of hypothyroidism. 16.History of fatty liver. 17.History of cardiac catheterization. 18.History of hysterectomy. 19.History of anxiety, depression. 20.Mild protein calorie malnutrition with body mass index of 17.6. 21.NO CODE, NO CPR, NO VENT. RECOMMENDATIONS AND DISCUSSION: I recommend to continue current medications, continue symptomatic treatment. Adjust the medications. Continue telemetry. Increase ambulation. Guarded prognosis because of multiple complex medical issues. Further recommendations to follow. MMODL / IJN: [id number] /
[2020-08-05 16:53] LABS: Glucose,Whole Blood 141 mg/dL (75-99)
[2020-08-05] MEDS: SODIUM CHLORIDE 0.9% 1,000 ML IV SCH (17:42)
[2020-08-05] MEDS: lisinopriL 20 MG TAB PO SCH (20:35)
[2020-08-05] MEDS: PRAVASTATIN SODIUM 80 MG TAB PO SCH (20:36)
[2020-08-05 20:54] LABS: Glucose,Whole Blood 137 mg/dL (75-99)
[2020-08-05 21:02] VITALS: RESP 18
[2020-08-06] MEDS: INSULIN ASPART (NovoLOG) 100 UNIT/ML VIAL SQ SCH ×3 (06:40→17:09)
[2020-08-06] MEDS: PANTOPRAZOLE 40 MG TABLET PO SCH (06:40)
[2020-08-06] MEDS: LEVOTHYROXINE 112 MCG TAB PO SCH (06:40)
[2020-08-06 06:47] LABS: Glucose,Whole Blood 145 mg/dL (75-99)
[2020-08-06 08:18] LABS: Basophils # (A) 0.1 k/uL (0-0.2); Basophils % (A) 1 %; Eosinophils # (A) 0.2 k/uL (0-0.7); Eosinophils % (A) 2 %; HCT 38.9 % (34.0-46.0); HGB 12.5 gm/dL (11.4-16.0); Lymphocytes # (A) 2.7 k/uL (1.0-4.8); Lymphocytes % (A) 37 %; MCH 29.1 pg (25.0-35.0); MCHC 32.3 g/dL (31.0-37.0); MCV 90.1 fL (80.0-100.0); Mean Platelet Volume 9.2; Monocytes # (A) 0.4 k/uL (0-1.0); Monocytes % (A) 6 %; Neutrophils # (A) 3.8 k/uL (1.3-7.7); Neutrophils % (A) 51 %; Platelet Count 258 k/uL (150-450); RBC 4.32 m/uL (3.80-5.40); RDW 13.7 % (11.5-15.5); WBC 7.4 k/uL (3.8-10.6)
[2020-08-06 08:33] LABS: African American GFR (CKD) >90 (>60 ml/min/1.73 sqM); Anion Gap 15 mmol/L; Blood Urea Nitrogen 23 mg/dL (7-17); Carbon Dioxide 20 mmol/L (22-30); Chloride 101 mmol/L (98-107); Glucose 121 mg/dL (74-99); Non-African American GFR(CKD) 82 (>60 ml/min/1.73 sqM); Potassium 4.3 mmol/L (3.5-5.1); Sodium 136 mmol/L (137-145)
[2020-08-06] MEDS: ASPIRIN 81 MG PO SCH (09:11)
[2020-08-06] MEDS: metFORMIN 500 MG TAB PO SCH (09:11)
[2020-08-06] MEDS: PIOGLITAZONE 30 MG TAB PO SCH (09:11)
[2020-08-06] MEDS: MULTIVITAMINS, THERA 1 EACH TAB PO SCH (09:11)
[2020-08-06] MEDS: REPAGLINIDE 1 MG TAB PO SCH (09:11)
[2020-08-06] MEDS: amLODIPine 5 MG TAB PO SCH (09:12)
[2020-08-06] MEDS: METOPROLOL TARTRATE 25 MG TAB PO SCH (09:12)
[2020-08-06] MEDS: LINAGLIPTIN 5 MG TABLET PO SCH (09:12)
[2020-08-06] MEDS: CLOPIDOGREL 75 MG TAB PO SCH (09:12)
[2020-08-06] MEDS: CITALOPRAM HYDROBROMIDE 20 MG TAB PO SCH (09:12)
[2020-08-06 09:36] VITALS: TEMP 98
[2020-08-06 12:01] LABS: Glucose,Whole Blood 114 mg/dL (75-99)
[2020-08-06] MEDS ORDERED: lisinopriL 20 MG TAB PO STA (13:48)
--- NOTE | 2020-08-06 14:03 | P.PN ---
Subjective Progress Note Date: 08/06/20 HISTORY OF PRESENT ILLNESS: Patient examined this morning the bedside. She denies chest pain or pressure. Denies shortness of breath. Patient has been maintaining sinus mechanism on telemetry. Patient's blood pressure this morning with a systolic in the 140s. Notified by nursing that patient's blood pressure is running in the 180s this afternoon. PHYSICAL EXAM: VITAL SIGNS: Reviewed. GENERAL: Well-developed in no acute distress. NECK: Supple. No JVD or thyromegaly LUNGS: Respirations even and unlabored. Lungs essentially clear to auscultation bilaterally. HEART: Regular rate and rhythm. S1 and S2 heard. Systolic murmur noted. EXTREMITIES: Normal range of motion. No clubbing or cyanosis. Peripheral pulses intact. No lower extremity edema ASSESSMENT: Cardiac arrhythmia, SVT with differential diagnosis of atrial flutter Coronary artery disease with prior revascularization Peripheral arterial disease with prior revascularization Hypertensive emergency PLAN: Lisinopril increased to twice a day dosing Patient is stable from a cardiac standpoint for discharge. She is to follow up outpatient. Nurse practitioner note has been reviewed by physician. Signing provider agrees with the documented findings, assessment, and plan of care. Objective - Vital Signs Vital signs: Vital Signs Temp 98 F 08/06/20 08:20 Pulse 60 08/06/20 12:00 Resp 18 08/06/20 12:00 BP 180/50 08/06/20 13:37 Pulse Ox 94 L 08/06/20 12:00 Intake & Output 08/05/20 08/06/20 08/06/20 18:59 06:59 18:59 Intake Total 593.607 10 240 Output Total 575 Balance 18.607 10 240 Weight 38 kg 45.8 kg Intake: IV 10 0.9 10 Intake, IV Titration 103.607 Amount Heparin Sod,Pork in 0.45% 103.607 NaCl 25,000 unit In 0.45 % NaCl 1 250ml.bag @ 12 UNITS/KG/HR 4.899 mls/hr IV .Q24H [facility]ICE Rx#: [id number] Oral 490 240 Output: Urine 575 Other: Voiding Method Toilet Toilet # Voids 2 1 - Labs CBC & Chem 7: 08/06/20 07:53 08/06/20 07:53 Labs: Abnormal Lab Results - Last 24 Hours (Table) 08/05/20 08/05/20 08/06/20 Range/Units 16:49 20:44 06:38 Sodium (137-145) mmol/L Carbon Dioxide (22-30) mmol/L BUN (7-17) mg/dL Glucose (74-99) mg/dL POC Glucose (mg/dL) 141 H 137 H 145 H (75-99) mg/dL 08/06/20 08/06/20 Range/Units 07:53 12:00 Sodium 136 L (137-145) mmol/L Carbon Dioxide 20 L (22-30) mmol/L BUN 23 H (7-17) mg/dL Glucose 121 H (74-99) mg/dL POC Glucose (mg/dL) 114 H (75-99) mg/dL
[2020-08-06 16:09] VITALS: BP 145/48; PULSE 62
[2020-08-06] MEDS: SODIUM CHLORIDE 0.9% 1,000 ML IV SCH (16:49)
[2020-08-06 16:52] LABS: Glucose,Whole Blood 136 mg/dL (75-99)
[2020-08-06] MEDS ORDERED: lisinopriL 20 MG TAB PO SCH (21:00)
--- NOTE | 2020-08-08 09:27 | DS ---
DISCHARGE SUMMARY DATE OF ADMISSION: 08/03/2020. DATE OF DISCHARGE: 08/06/2020. FINAL DIAGNOSES: 1. Paroxysmal recurrent atrial flutter, POA. 2. Troponin leak secondary to arrhythmia. Not acute coronary syndrome. 3. Coronary artery disease, prior history of coronary artery bypass. 4. Diabetes mellitus type 2. 5. Gastroesophageal reflux disease. 6. Hyperlipidemia. 7. Essential hypertension. 8. Primary osteoarthritis. 9. Hypothyroid. 10.Nonalcoholic hepatic steatosis. 11.Anxiety/depression not otherwise specified. CONSULTATION: Dr. Delarosa from Cardiology. HOSPITAL COURSE: This patient presented through the ER with some chest palpitations. In the hospital she had episodes of recurrent narrow complex tachycardia. Possible atrial flutter per Cardiology. The patient did have a troponin of 0.302. [place] to be from arrhythmia. Not acute coronary syndrome. 2D echocardiogram showed the EF of 65-70 percent. Otherwise nonspecific findings. The patient doing well by the time of discharge. Medications adjusted and patient was symptom free before discharge. PHYSICAL EXAMINATION: Temperature 98, pulse 62. Respiration 18, blood pressure 145/48, pulse ox 95% on room air. Lungs fair entry. Cardiovascular: First and second sounds normal. Psych AO x3. INVESTIGATIONS: White count 7.4, hemoglobin 12.5, potassium 4.3, creatinine 0.69. Troponin I 0.302. TSH 7.9, Free T4 0.93. DISCHARGE MEDICATIONS: 1. Celexa 20 mg a day. 2. Protonix 40 mg a day. 3. Pravachol 80 mg q.h.s. 4. Plavix 75 mg a day. 5. Ibuprofen 600 mg daily p.r.n. 6. Lopressor 25 mg p.o. b.i.d. 7. Multivitamin 1 tablet p.o. daily. 8. Cetirizine 10 mg p.o. daily p.r.n. 9. Vitamin D3 25 mcg daily. 10.Flonase 1 spray each nostril daily. 11.Synthroid 112 mcg p.o. daily. 12.Actos 30 mg p.o. daily. 13.Prandin 0.5 mg p.o. daily. 14.Metformin 1000 mg p.o. b.i.d. 15.Januvia 100 mg p.o. daily. 16.Aspirin 81 mg p.o. daily. 17.Norvasc 5 mg p.o. b.i.d. 18.Lisinopril 20 mg b.i.d. Discontinued medications include Lotensin. DISPOSITION: Home. FOLLOWUP: [facility] up [facility] [address] Enriquez in 1-2 days. MMODL / IJN: [id number] /
== END 2020-08-06 19:45 | disposition home or self-care (01) | DRG 309 ==
LOC: EC 14:55 → 3SCARD 16:13
PROVIDERS: ADMIT Hospitalist; ATTEND Hospitalist
DX: I48.92 Unspecified atrial flutter (principal); Z68.1 Body mass index [BMI] 19.9 or less, adult; E44.1 Mild protein-calorie malnutrition; E87.1 Hypo-osmolality and hyponatremia; Z66 Do not resuscitate; K21.9 Gastro-esophageal reflux disease without esophagitis; I25.10 Atherosclerotic heart disease of native coronary artery without angina pectoris; I44.1 Atrioventricular block, second degree; I44.7 Left bundle-branch block, unspecified; I16.0 Hypertensive urgency; I10 Essential (primary) hypertension; H91.90 Unspecified hearing loss, unspecified ear; F41.9 Anxiety disorder, unspecified; F32.9 Major depressive disorder, single episode, unspecified; E78.5 Hyperlipidemia, unspecified; E11.65 Type 2 diabetes mellitus with hyperglycemia; E11.51 Type 2 diabetes mellitus with diabetic peripheral angiopathy without gangrene; E03.9 Hypothyroidism, unspecified; K76.0 Fatty (change of) liver, not elsewhere classified; M19.91 Primary osteoarthritis, unspecified site; Z20.822 Contact with and (suspected) exposure to COVID-19; Z95.1 Presence of aortocoronary bypass graft; Z90.710 Acquired absence of both cervix and uterus; Z86.73 Personal history of transient ischemic attack (TIA), and cerebral infarction without residual deficits; Z82.49 Family history of ischemic heart disease and other diseases of the circulatory system; Z79.899 Other long term (current) drug therapy; Z79.890 Hormone replacement therapy; Z79.84 Long term (current) use of oral hypoglycemic drugs; Z79.82 Long term (current) use of aspirin; Z79.02 Long term (current) use of antithrombotics/antiplatelets; Z88.2 Allergy status to sulfonamides; Z91.013 Allergy to seafood; Z98.49 Cataract extraction status, unspecified eye; Z98.890 Other specified postprocedural states; Z98.51 Tubal ligation status; Z82.3 Family history of stroke
CPT/HCPCS: 36415; 71045; 80048; 80053; 81001; 82150; 83735; 83880; 84439; 84443; 84484; 85025; 85610; 85730; 87635; 93005; 93306; 96365; 96375; 96376; 99291

== ENCOUNTER 2023-08-30 15:08 | Emergency (ER) | payer MEDICARE, BC ==
--- NOTE | 2023-08-30 17:01 | XR ---
EXAMINATION TYPE: XR shoulder complete 3 views LT DATE OF EXAM: 08/30/2023 Comparison: None Clinical History: 83-year-old female trauma, pain after fall Findings: There is an impacted fracture of the surgical neck of the proximal left humerus. Impaction up to 2.1 cm. Slight anterior displacement anterior apex angulation as well. Minimal joint appears intact as do es the AC joint. At this chronic calcifications throughout the visualized aorta. Coronary stents. Med loc sternotomy wires. Impression: 2 part left humeral head fracture with the surgical neck component impacted by 2.1 cm.
--- NOTE | 2023-08-30 17:09 | CT ---
EXAMINATION TYPE: CT brain mony rubio DATE OF EXAM: 08/30/2023 COMPARISON: None HISTORY: 83-year-old female trauma, Pain after fall CT DLP: 1193.3 mGycm Automated exposure control for dose reduction was used. Technique: Examination of the head was done in axial plane without intravenous contrast. Coronal and sagittal reconstructions performed. CT of the cervical spine was obtained in axial plane without intravenous injection of contrast mater ial. Coronal and sagittal reformatted images were obtained from the axial views for evaluation of f ractures, spinal alignment and canal. FINDINGS: Head: There is no evidence of acute intracranial hemorrhage, acute ischemic changes, mass, mass-effect, or extra-axial fluid collection. There is no effacement of cerebral sulci or basal subarachnoid cister ns. There is no hydrocephalus. There is no midline shift. Cee-white matter distinction is preserv ed. Moderate patchy white matter hypodensities in both cerebral hemispheres. Areas of small cortical encephalomalacia anterior right frontal lobe, posterior left frontal lobe, an d medial right temporal parietal junction with some ex vacuo enlargement of the adjacent lateral vent ricle. Small lacunar infarcts within the bilateral paramedian lei as well. Lacunar infarct right bas al ganglia. Atherosclerotic calcifications in the carotid siphons There is a sinuses and mastoid air cells well pneumatized. Orbits and globes are intact. Cervical spine: Osteopenia. No craniocervical junction abnormality, predental space widening, or prevertebral soft tissue swellin g. Degenerative change of the C1 dens articulation. Degenerative trace grade 1 retrolisthesis C5-C6 and grade 1 anterolisthesis C6-C7. Suspect a remote i nferior endplate deformity C6. No acute fracture seen of the cervical spine. No evident spinal canal compromise identified by CT. There appears to be a small posterior disc protr usion at C4-C5. Scattered facet and uncovertebral joint arthropathy. Variable mild neuroforaminal stenoses throughout . Bilateral palatine tonsillar hypertrophy with numerous bilateral calcifications suggesting sequela of prior infection. Prominent apical scarring calcifications left carotid bifurcation. Sagittal and coronal reformatted images confirm above findings. COMBINED IMPRESSION: 1. Moderate burden of chronic small vessel ischemic disease with scattered small areas of cortical en cephalomalacia suggesting small previous cortical infarcts. Additional lacunar infarct right basal ga nglia and bilateral paramedian lei. 2. No acute intracranial abnormality seen. 3. Moderate multilevel spondylitic change. Degenerative trace grade 1 spondylolisthesis C5-C6 and C6- C7. No acute fracture of the cervical spine. 4. Incidentally, prominent atherosclerotic calcifications of the left carotid bifurcation.
[2023-08-30] MEDS: MORPHINE SULFATE 2 MG/ML SYRINGE IV STA (17:41)
[2023-08-30] MEDS: ONDANSETRON 4 MG/2 ML VIAL IVP STA (17:41)
[2023-08-30 17:44] LABS: Basophils % (A) 0 %; Eosinophils % (A) 0 %; HCT 38.8 % (34.0-46.0); Lymphocytes # (A) 0.9 k/uL (1.0-4.8); Lymphocytes % (A) 9 %; MCH 32.4 pg (25.0-35.0); MCHC 33.4 g/dL (31.0-37.0); MCV 97.1 fL (80.0-100.0); Mean Platelet Volume 9.7; Monocytes # (A) 0.5 k/uL (0-1.0); Monocytes % (A) 5 %; Neutrophils % (A) 84 %; Platelet Count 200 k/uL (150-450); WBC 9.5 k/uL (3.8-10.6)
[2023-08-30 18:00] VITALS: RESP 16
[2023-08-30 18:16] LABS: ALT 32 U/L (4-34); AST 40 U/L (14-36); African American GFR (CKD) >90 (>60 ml/min/1.73 sqM); Albumin 3.9 g/dL (3.5-5.0); Alkaline Phosphatase 49 U/L (38-126); Anion Gap 11 mmol/L; Blood Urea Nitrogen 32 mg/dL (7-17); Calcium 9.4 mg/dL (8.4-10.2); Carbon Dioxide 25 mmol/L (22-30); Chloride 103 mmol/L (98-107); Glucose 229 mg/dL (74-99); Non-African American GFR(CKD) 84 (>60 ml/min/1.73 sqM); Potassium 4.6 mmol/L (3.5-5.1); Sodium 139 mmol/L (137-145); Total Bilirubin 0.4 mg/dL (0.2-1.3); Total Protein 6.7 g/dL (6.3-8.2)
--- NOTE | 2023-08-30 18:43 | ED ---
Fall HPI - General Chief Complaint: Fall Stated Complaint: fall- left shoulder injury Time Seen by Provider: 08/30/23 15:52 Source: patient Mode of arrival: ambulatory - Related Data Home Medications Medication Instructions Recorded Confirmed Citalopram Hydrobromide [CeleXA] 20 mg PO DAILY 10/21/14 08/09/22 Pantoprazole Sodium 40 mg PO DAILY 10/21/14 08/09/22 Metoprolol Tartrate [Lopressor] 25 mg PO BID 07/12/17 08/09/22 Multivitamins, Thera [Multivitamin 1 tab PO DAILY 08/13/17 08/09/22 (formulary)] Cholecalciferol [Vitamin D3 (25 75 mcg PO DAILY 08/03/20 08/09/22 Mcg = 1000 Iu)] Pioglitazone [Actos] 30 mg PO DAILY 08/03/20 08/09/22 metFORMIN HCL [Glucophage] 500 mg PO BID 08/03/20 08/09/22 Ascorbic Acid [Vitamin C] 1,000 mg PO DAILY 07/20/22 08/09/22 Dapagliflozin Propanediol [Farxiga] 10 mg PO DAILY 07/20/22 08/09/22 Isosorbide Mononitrate ER [Imdur] 30 mg PO DAILY 07/20/22 08/09/22 Levothyroxine Sodium [Synthroid] 137 mcg PO DAILY 07/20/22 08/09/22 Nitroglycerin Sl Tabs [Nitrostat] 0.4 mg SL Q5M PRN 07/20/22 08/09/22 Atorvastatin [Lipitor] 40 mg PO HS 08/01/22 08/09/22 Previous Rx's Medication Instructions Recorded Aspirin 81 mg PO DAILY tab 07/22/22 Clopidogrel [Plavix] 75 mg PO DAILY #30 tab 07/22/22 Losartan [Cozaar] 50 mg PO DAILY #30 tab 07/22/22 HYDROcodone/APAP 5-325MG [[place] 1 - 2 tab PO Q6HR PRN 3 Days #12 08/30/23 5-325] tab Allergies Allergy/AdvReac Type Severity Reaction Status Date / Time shellfish derived [Shellfish] Allergy Nausea & Verified 08/30/23 15:26 Vomiting & Diarrhea Sulfa (Sulfonamide Allergy Rash/Hives Verified 08/30/23 15:26 Antibiotics) Review of Systems ROS Statement: Those systems with pertinent positive or pertinent negative responses have been documented in the HPI. ROS Other: All systems not noted in ROS Statement are negative. Past Medical History Past Medical History: Coronary Artery Disease (CAD), Chest Pain / Angina, CVA/TIA, Diabetes Mellitus, GERD/Reflux, Hearing Disorder / Deafness, Hyperlipidemia, Hypertension, Osteoarthritis (OA), Thyroid Disorder, Vascular Disorder Additional Past Medical History / Comment(s): HX FATTY LIVER, SINUS PROBLEMS AT TIMES, SEASONAL ALLERGIES, TIA, MURMUR. PAIN IN RT THIGH, LT CALF WITH WALKING, recent adm. for CP History of Any Multi-Drug Resistant Organisms: None Reported Past Surgical History: Coronary Bypass/CABG, Heart Catheterization, Heart Ruchi terization With Stent, Hysterectomy, Orthopedic Surgery, Tubal Ligation Additional Past Surgical History / Comment(s): RIGHT KNEE SURGERY, CATARACT SURGERY, ABD AORTOGRAM W/ RUNOFF, LT ILIAC ARTERY ANGIOGRAM W/STENT X4. CABG-5 VESSELS. Past Anesthesia/Blood Transfusion Reactions: No Reported Reaction Date of Last Stent Placement:: 07-20-22 Past Psychological History: Anxiety, Depression Smoking Status: Never smoker Past Alcohol Use History: Rare Past Drug Use History: None Reported - Past Family History Father Family Medical History: Coronary Artery Disease (CAD) Sister(s) Family Medical History: CVA/TIA, Deep Vein Thrombosis (DVT) General Exam Limitations: no limitations Course Vital Signs 08/30/23 08/30/23 15:20 17:43 Temperature 98.3 F Pulse Rate 85 78 Respiratory 18 16 Rate Blood Pressure 194/80 186/74 O2 Sat by Pulse 94 L 92 L Oximetry Medical Decision Making - Lab Data Result diagrams: 08/30/23 17:24 08/30/23 17:24 Lab Results 08/30/23 08/30/23 Range/Units 17:24 17:24 WBC 9.5 (3.8-10.6) k/uL RBC 4.00 (3.80-5.40) m/uL Hgb 13.0 (11.4-16.0) gm/dL Hct 38.8 (34.0-46.0) % MCV 97.1 (80.0-100.0) fL MCH 32.4 (25.0-35.0) pg MCHC 33.4 (31.0-37.0) g/dL RDW 14.0 (11.5-15.5) % Plt Count 200 (150-450) k/uL MPV 9.7 Neutrophils % 84 % Lymphocytes % 9 % Monocytes % 5 % Eosinophils % 0 % Basophils % 0 % Neutrophils # 8.0 H (1.3-7.7) k/uL Lymphocytes # 0.9 L (1.0-4.8) k/uL Monocytes # 0.5 (0-1.0) k/uL Eosinophils # 0.0 (0-0.7) k/uL Basophils # 0.0 (0-0.2) k/uL Sodium 139 (137-145) mmol/L Potassium 4.6 (3.5-5.1) mmol/L Chloride 103 (98-107) mmol/L Carbon Dioxide 25 (22-30) mmol/L Anion Gap 11 mmol/L BUN 32 H (7-17) mg/dL Creatinine 0.61 (0.52-1.04) mg/dL Est GFR (CKD-EPI)AfAm >90 (>60 ml/min/1.73 sqM) Est GFR (CKD-EPI)NonAf 84 (>60 ml/min/1.73 sqM) Glucose 229 H (74-99) mg/dL Calcium 9.4 (8.4-10.2) mg/dL Total Bilirubin 0.4 (0.2-1.3) mg/dL AST 40 H (14-36) U/L ALT 32 (4-34) U/L Alkaline Phosphatase 49 (38-126) U/L Total Protein 6.7 (6.3-8.2) g/dL Albumin 3.9 (3.5-5.0) g/dL Disposition Clinical Impression: Fall, Dizziness, Humeral fracture, Head injury, Neck strain, Neck arthritis, History of lacunar cerebrovascular accident Disposition: HOME SELF-CARE Condition: Good Additional Instructions: Please use stool softener as well taking hydrocodone. You also may utilize Tylenol and/or Motrin if needed for pain. Prescriptions: HYDROcodone/APAP 5-325MG [[place] 5-325] 1 - 2 tab PO Q6HR PRN 3 Days #12 tab PRN Reason: Pain Is patient prescribed a controlled substance at d/c from ED?: Yes When asked, does pt state using other controlled substances?: No If prescribed controlled substance>3 days was MAPS reviewed?: Prescribed <3 Days Referrals: Miguelito Enriquez DO [Primary Care Provider] - 1-2 days Derrick Walker DO [Doctor of Osteopathic Medicine] - 1-2 days Time of Disposition: 18:35
[2023-08-30] MEDS: KETOROLAC 15 MG/ML 1 ML VIAL IVP STA (18:54)
[2023-08-30] MEDS: MORPHINE SULFATE 2 MG/ML SYRINGE IVP STA (18:55)
[2023-08-30 19:33] VITALS: BP 176/80; PULSE 76; TEMP 97.8
--- NOTE | 2023-08-30 21:35 | ED ---
Fall HPI - General Chief Complaint: Fall Stated Complaint: fall- left shoulder injury Time Seen by Provider: 08/30/23 15:52 Source: patient Mode of arrival: ambulatory - History of Present Illness Initial Comments: This 83-year-old female presents with complaint of a fall. She presents with her son who is present. He states that she fell onto the soft ground at his cabin up in the [facility]. She did hit her head but there is no loss of consciousness or neurologic problems. She landed on her left shoulder. She is complaining of severe pain to her left shoulder. They drove approximately 4 hours back home and came directly to the hospital upon getting back to their area. She did take some [id number] analgesics for pain with limited relief. There is no nausea or vomiting. She denies any other injuries. She does have some slight neck pain as well. She is not on any blood thinners except for aspirin. She is no longer on Plavix. The son relates that she does occasionally have these dizzy episodes and has some chronic instability/imbalance. No other complaints or modifying factors. - Related Data Home Medications Medication Instructions Recorded Confirmed Citalopram Hydrobromide [CeleXA] 20 mg PO DAILY 10/21/14 08/09/22 Pantoprazole Sodium 40 mg PO DAILY 10/21/14 08/09/22 Metoprolol Tartrate [Lopressor] 25 mg PO BID 07/12/17 08/09/22 Multivitamins, Thera [Multivitamin 1 tab PO DAILY 08/13/17 08/09/22 (formulary)] Cholecalciferol [Vitamin D3 (25 75 mcg PO DAILY 08/03/20 08/09/22 Mcg = 1000 Iu)] Pioglitazone [Actos] 30 mg PO DAILY 08/03/20 08/09/22 metFORMIN HCL [Glucophage] 500 mg PO BID 08/03/20 08/09/22 Ascorbic Acid [Vitamin C] 1,000 mg PO DAILY 07/20/22 08/09/22 Dapagliflozin Propanediol [Farxiga] 10 mg PO DAILY 07/20/22 08/09/22 Isosorbide Mononitrate ER [Imdur] 30 mg PO DAILY 07/20/22 08/09/22 Levothyroxine Sodium [Synthroid] 137 mcg PO DAILY 02/02/23 02/22/23 Nitroglycerin Sl Tabs [Nitrostat] 0.4 mg SL Q5M PRN 07/20/22 08/09/22 Atorvastatin [Lipitor] 40 mg PO HS 08/01/22 08/09/22 Previous Rx's Medication Instructions Recorded Aspirin 81 mg PO DAILY tab 07/22/22 Clopidogrel [Plavix] 75 mg PO DAILY #30 tab 07/22/22 Losartan [Cozaar] 50 mg PO DAILY #30 tab 07/22/22 HYDROcodone/APAP 5-325MG [[place] 1 - 2 tab PO Q6HR PRN 3 Days #12 08/30/23 5-325] tab Allergies Allergy/AdvReac Type Severity Reaction Status Date / Time shellfish derived [Shellfish] Allergy Nausea & Verified 08/30/23 15:26 Vomiting & Diarrhea Sulfa (Sulfonamide Allergy Rash/Hives Verified 08/30/23 15:26 Antibiotics) Review of Systems ROS Statement: Those systems with pertinent positive or pertinent negative responses have been documented in the HPI. ROS Other: All systems not noted in ROS Statement are negative. Past Medical History Past Medical History: Coronary Artery Disease (CAD), Chest Pain / Angina, CVA/TIA, Diabetes Mellitus, GERD/Reflux, Hearing Disorder / Deafness, Hyperlipidemia, Hypertension, Osteoarthritis (OA), Thyroid Disorder, Vascular Disorder Additional Past Medical History / Comment(s): HX FATTY LIVER, SINUS PROBLEMS AT TIMES, SEASONAL ALLERGIES, TIA, MURMUR. PAIN IN RT THIGH, LT CALF WITH WALKING, recent adm. for CP History of Any Multi-Drug Resistant Organisms: None Reported Past Surgical History: Coronary Bypass/CABG, Heart Catheterization, Heart Catheterization With Stent, Hysterectomy, Orthopedic Surgery, Tubal Ligation Additional Past Surgical History / Comment(s): RIGHT KNEE SURGERY, CATARACT SURGERY, ABD AORTOGRAM W/ RUNOFF, LT ILIAC ARTERY ANGIOGRAM W/STENT X4. CABG-5 VESSELS. Past Anesthesia/Blood Transfusion Reactions: No Reported Reaction Date of Last Stent Placement:: 07-20-22 Past Psychological History: Anxiety, Depression Smoking Status: Never smoker Past Alcohol Use History: Rare Past Drug Use History: None Reported - Past Family History Father Family Medical History: Coronary Artery Disease (CAD) Sister(s) Family Medical History: CVA/TIA, Deep Vein Thrombosis (DVT) General Exam - General Exam Comments Initial Comments: GENERAL: The patient is well nourished and well hydrated. VITAL SIGNS: Heart rate, blood pressure, respiratory rate reviewed as recorded in nurse's notes. EYES: Pupils are round and reactive. Extraocular movements are intact. No conjunctival / lid redness or swelling. ENT: There is slight tenderness and bruising noted to the left forehead. Airway is patent. Throat is clear. NECK: There is minimal tenderness noted to the paracervical musculature. No swelling or evidence of injury. No subcutaneous emphysema. Trachea is midline. No thyroid mass. HEART: Regular rate and rhythm. Good peripheral pulses. LUNGS/CHEST: Breath sounds clear and equal bilaterally. No rales, rhonchi, or wheezes. No ecchymosis, subcutaneous emphysema, or tenderness. ABDOMEN: Abdomen soft without tenderness. No palpable masses or organomegaly. No peritoneal signs. No abdominal wall swelling or ecchymosis. EXTREMITIES: There is some tenderness present into the left proximal humeral region. There is significant pain at any attempts on range of motion. There is good radial pulses and capillary refill distally. Sensation is intact. Normal muscle tone and function. No thoracolumbar tenderness. NEUROLOGIC: Sensation is grossly intact. Cranial nerve exam reveals face is symmetrical, tongue is midline, speech is clear. SKIN: No abrasions or ecchymosis is noted. No induration or masses noted. PSYCHIATRIC: Alert and oriented. Appropriate behavior and judgment. Limitations: no limitations Course Vital Signs 08/30/23 08/30/23 08/30/23 15:20 17:43 19:15 Temperature 98.3 F 97.8 F Pulse Rate 85 78 76 Respiratory 18 16 16 Rate Blood Pressure 194/80 186/74 176/80 O2 Sat by Pulse 94 L 92 L 92 L Oximetry Medical Decision Making - Medical Decision Making The patient was seen and examined. All diagnostics were reviewed. She does receive morphine intravenously for pain. A dose of Toradol also was given intravenously. CT scan of the brain does not show any acute process per my interpretation and radiology interpretation. The CT scan of the neck shows some arthritic changes but no evidence of fracture per my interpretation and radiology interpretation. X-ray of the left shoulder does show a proximal left comminuted humeral fracture with slight shortening per my interpretation and radiologist interpretation. Laboratory overall is unremarkable. EKG shows a normal sinus rhythm with first-degree AV block and heart rate of 87. There is some nonspecific ST and T wave changes noted in the inferior and lateral leads. The intervals are all essentially within normal limits per my interpretation. Patient is placed in a sling. It is felt as though she is stable for discharge home. Close orthopedic follow-up is recommended. Pain medications of [place] as prescribed. Medications to prevent constipation are also recommended. Return parameters are discussed. Was pt. sent in by a medical professional or institution (, [facility], [employer], urgent care, hospital, or fci...) When possible be specific @ -[No] Did you speak to anyone other than the patient for history (EMS, parent, family, police, friend...)? What history was obtained from this source @ -Case also was discussed with the son who is an excellent historian. Did you review nursing and triage notes (agree or disagree)? Why? @ -[I reviewed and agree with nursing and triage notes] Were old charts reviewed (outside hosp., previous admission, EMS record, old EKG, old radiological studies, urgent care reports/EKG's, fci records)? Report findings @ -Old records were reviewed and additional past medical history is obtained. Differential Diagnosis (chest pain, altered mental status, abdominal pain women, abdominal pain men, vaginal bleeding, weakness, fever, dyspnea, syncope, headache, dizziness, GI bleed, back pain, seizure, CVA, palpatations, mental health, musculoskeletal)? @ -Humeral fracture, shoulder dislocation, contusion, head injury, intracranial bleed, cervical spine fracture, cervical strain, fall, dizziness EKG interpreted by me (3pts min.). @ -[As above] X-rays interpreted by me (1pt min.). @ -As above CT interpreted by me (1pt min.). @ -As above U/S interpreted by me (1pt. min.). @ -[None done] What testing was considered but not performed or refused? (CT, X-rays, U/S, labs)? Why? @ -[None] What meds were considered but not given or refused? Why? @ -[None] Did you discuss the management of the patient with other professionals (professionals i.e. , [facility], [employer], lab, RT, psych nurse, social media coordinator, geochemist, teacher, disabilities services officer, case management assistant)? Give summary @ -[No] Was smoking cessation discussed for >3mins.? @ -[No] Was critical care preformed (if so, how long)? @ -[No] Were there social determinants of health that impacted care today? How? (Homelessness, low income, unemployed, alcoholism, drug addiction, transportation, low edu. Level, literacy, decrease access to med. care, halfway, r ehab)? @ -[No] Was there de-escalation of care discussed even if they declined (Discuss DNR or withdrawal of care, Hospice)? DNR status @ -[No] What co-morbidities impacted this encounter? (DM, HTN, Smoking, COPD, CAD, Cancer, CVA, ARF, Chemo, Hep., AIDS, mental health diagnosis, sleep apnea, morb id obesity)? @ -Chronic gait instability, intermittent dizzy spells. Was patient admitted / discharged? Hospital course, mention meds given and route, prescriptions, significant lab abnormalities, going to OR and other pertinent info. @ -Patient was discharged home. Please see above. Orthopedic referral is given. Undiagnosed new problem with uncertain prognosis? @ -[No] Drug Therapy requiring intensive monitoring for toxicity (Heparin, Nitro, Insulin, Cardizem)? @ -[No] Were any procedures done? @ -[No] Diagnosis/symptom? @ -Left proximal humeral fracture status post fall, head injury, cervical strain, cervical arthritis Acute, or Chronic, or Acute on Chronic? @ -Acute Uncomplicated (without systemic symptoms) or Complicated (systemic symptoms)? @ -Uncomplicated Side effects of treatment? @ -[No] Exacerbation, Progression, or Severe Exacerbation? @ -[No] Poses a threat to life or bodily function? How? (Chest pain, [place], [place], pneumonia, PE, COPD, DKA, ARF, appy, cholecystitis, CVA, Diverticulitis, Homicidal, Suicidal, threat to staff... and all critical care pts) @ -[No] - Lab Data Result diagrams: 08/30/23 17:24 08/30/23 17:24 Lab Results 08/30/23 08/30/23 Range/Units 17:24 17:24 WBC 9.5 (3.8-10.6) k/uL RBC 4.00 (3.80-5.40) m/uL Hgb 13.0 (11.4-16.0) gm/dL Hct 38.8 (34.0-46.0) % MCV 97.1 (80.0-100.0) fL MCH 32.4 (25.0-35.0) pg MCHC 33.4 (31.0-37.0) g/dL RDW 14.0 (11.5-15.5) % Plt Count 200 (150-450) k/uL MPV 9.7 Neutrophils % 84 % Lymphocytes % 9 % Monocytes % 5 % Eosinophils % 0 % Basophils % 0 % Neutrophils # 8.0 H (1.3-7.7) k/uL Lymphocytes # 0.9 L (1.0-4.8) k/uL Monocytes # 0.5 (0-1.0) k/uL Eosinophils # 0.0 (0-0.7) k/uL Basophils # 0.0 (0-0.2) k/uL Sodium 139 (137-145) mmol/L Potassium 4.6 (3.5-5.1) mmol/L Chloride 103 (98-107) mmol/L Carbon Dioxide 25 (22-30) mmol/L Anion Gap 11 mmol/L BUN 32 H (7-17) mg/dL Creatinine 0.61 (0.52-1.04) mg/dL Est GFR (CKD-EPI)AfAm >90 (>60 ml/min/1.73 sqM) Est GFR (CKD-EPI)NonAf 84 (>60 ml/min/1.73 sqM) Glucose 229 H (74-99) mg/dL Calcium 9.4 (8.4-10.2) mg/dL Total Bilirubin 0.4 (0.2-1.3) mg/dL AST 40 H (14-36) U/L ALT 32 (4-34) U/L Alkaline Phosphatase 49 (38-126) U/L Total Protein 6.7 (6.3-8.2) g/dL Albumin 3.9 (3.5-5.0) g/dL Disposition Clinical Impression: Fall, Dizziness, Humeral fracture, Head injury, Neck strain, Neck arthritis, History of lacunar cerebrovascular accident Disposition: HOME SELF-CARE Condition: Good Additional Instructions: Please use stool softener as well taking hydrocodone. You also may utilize Tylenol and/or Motrin if needed for pain. Prescriptions: HYDROcodone/APAP 5-325MG [[place] 5-325] 1 - 2 tab PO Q6HR PRN 3 Days #12 tab PRN Reason: Pain Is patient prescribed a controlled substance at d/c from ED?: Yes When asked, does pt state using other controlled substances?: No If prescribed controlled substance>3 days was MAPS reviewed?: Prescribed <3 Days Referrals: Miguelito Enriquez DO [Primary Care Provider] - 1-2 days Derrick Walker DO [Doctor of Osteopathic Medicine] - 1-2 days Time of Disposition: 18:00
== END 2023-08-30 19:16 | disposition home or self-care (01) ==
LOC: EC 15:08
DX: S42.302A Unspecified fracture of shaft of humerus, left arm, initial encounter for closed fracture (principal); S16.1XXA Strain of muscle, fascia and tendon at neck level, initial encounter; S09.90XA Unspecified injury of head, initial encounter; I63.81 Other cerebral infarction due to occlusion or stenosis of small artery; R42 Dizziness and giddiness; I48.91 Unspecified atrial fibrillation; E11.9 Type 2 diabetes mellitus without complications; K21.9 Gastro-esophageal reflux disease without esophagitis; E78.5 Hyperlipidemia, unspecified; F41.9 Anxiety disorder, unspecified; I10 Essential (primary) hypertension; F32.A Depression, unspecified; I44.0 Atrioventricular block, first degree; E07.9 Disorder of thyroid, unspecified; I25.10 Atherosclerotic heart disease of native coronary artery without angina pectoris; Z79.890 Hormone replacement therapy; Z79.899 Other long term (current) drug therapy; Z88.2 Allergy status to sulfonamides; Z91.013 Allergy to seafood; W18.30XA Fall on same level, unspecified, initial encounter
CPT/HCPCS: 36415; 80053; 85025; 73030; 72125; 70450; 99285; 96374; 96375 ×2; 96376; J2405; J2270; J1885

== ENCOUNTER 2023-09-20 18:44 | Emergency (ER) | payer MEDICARE, BC ==
[2023-09-20 19:02] LABS: Glucose,Whole Blood 173 mg/dL (70-110)
[2023-09-20 19:11] LABS: Basophils % (A) 0 %; Eosinophils # (A) 0.2 k/uL (0-0.7); Eosinophils % (A) 2 %; HCT 36.9 % (34.0-46.0); HGB 11.9 gm/dL (11.4-16.0); Lymphocytes % (A) 18 %; MCH 31.6 pg (25.0-35.0); MCHC 32.3 g/dL (31.0-37.0); MCV 97.9 fL (80.0-100.0); Mean Platelet Volume 9.3; Monocytes # (A) 0.6 k/uL (0-1.0); Monocytes % (A) 6 %; Neutrophils # (A) 7.8 k/uL (1.3-7.7); Neutrophils % (A) 71 %; Platelet Count 318 k/uL (150-450); RBC 3.77 m/uL (3.80-5.40); RDW 13.8 % (11.5-15.5)
[2023-09-20 19:21] LABS: ALT 23 U/L (4-34); AST 33 U/L (14-36); African American GFR (CKD) >90 (>60 ml/min/1.73 sqM); Albumin 3.5 g/dL (3.5-5.0); Alkaline Phosphatase 118 U/L (38-126); Anion Gap 10 mmol/L; Blood Urea Nitrogen 24 mg/dL (7-17); Calcium 9.2 mg/dL (8.4-10.2); Carbon Dioxide 20 mmol/L (22-30); Chloride 106 mmol/L (98-107); Creatine Kinase 42 U/L (30-135); Glucose 161 mg/dL (74-99); Non-African American GFR(CKD) 87 (>60 ml/min/1.73 sqM); Partial Thromboplastin Time 22.8 sec (22.0-30.0); Potassium 4.2 mmol/L (3.5-5.1); Prothrombin Time 10.7 sec (10.0-12.5); Sodium 136 mmol/L (137-145); Total Bilirubin 0.4 mg/dL (0.2-1.3); Total Protein 6.4 g/dL (6.3-8.2)
--- NOTE | 2023-09-20 19:26 | ED ---
General Adult HPI - General Chief complaint: Neuro Symptoms/Deficit Stated complaint: stroke like symptoms Time Seen by Provider: 09/20/23 19:00 Source: patient, family, RN notes reviewed, old records reviewed Mode of arrival: wheelchair Limitations: no limitations - History of Present Illness Initial comments: 83-year-old female presenting with an episode of confusion. Patient had woke from a nap this afternoon and was confused according to her son. This did gradually improve just prior to arrival. There was no reported focal numbness or weakness. Patient has been eating and drinking well. No fever. No vomiting. - Related Data Home Medications Medication Instructions Recorded Confirmed Citalopram Hydrobromide [CeleXA] 20 mg PO DAILY@119910/21/14 09/20/23 Pantoprazole Sodium 40 mg PO DAILY@119910/21/14 09/20/23 Multivitamins, Thera [Multivitamin 1 tab PO DAILY 08/13/17 09/20/23 (formulary)] Cholecalciferol [Vitamin D3 (25 75 mcg PO DAILY 08/03/20 09/20/23 Mcg = 1000 Iu)] Pioglitazone [Actos] 30 mg PO DAILY@119908/03/20 09/20/23 metFORMIN HCL [Glucophage] 500 mg PO AC-BID 08/03/20 09/20/23 Dapagliflozin Propanediol [Farxiga] 10 mg PO DAILY@119907/20/22 09/20/23 Isosorbide Mononitrate ER [Imdur] 30 mg PO DAILY 07/20/22 09/20/23 Nitroglycerin Sl Tabs [Nitrostat] 0.4 mg SL Q5M PRN 07/20/22 09/20/23 Atorvastatin [Lipitor] 40 mg PO HS 08/01/22 09/20/23 Ascorbic Acid [Vitamin C] 500 mg PO DAILY 09/20/23 09/20/23 Aspirin 81 mg PO DAILY@119909/20/23 09/20/23 Ferrous Sulfate [Feosol] 325 mg PO DAILY@119909/20/23 09/20/23 Levothyroxine Sodium [Synthroid] 112 mcg PO DAILY 09/20/23 09/20/23 Previous Rx's Medication Instructions Recorded Losartan [Cozaar] 50 mg PO DAILY #30 tab 07/22/22 HYDROcodone/APAP 5-325MG [[place] 1 - 2 tab PO Q6HR PRN 3 Days #12 08/30/23 5-325] tab Allergies Allergy/AdvReac Type Severity Reaction Status Date / Time shellfish derived [Shellfish] Allergy Severe Swelling Verified 09/20/23 19:23 in face and throat, Nausea & Vomiting & Diarrhea Sulfa (Sulfonamide Allergy Rash/Hives, Verified 09/20/23 19:23 Antibiotics) Swelling Review of Systems ROS Statement: Those systems with pertinent positive or pertinent negative responses have been documented in the HPI. ROS Other: All systems not noted in ROS Statement are negative. Past Medical History Past Medical History: Coronary Artery Disease (CAD), Chest Pain / Angina, CVA/TIA, Diabetes Mellitus, GERD/Reflux, Hearing Disorder / Deafness, Hyperlipidemia, Hypertension, Osteoarthritis (OA), Thyroid Disorder, Vascular Disorder Additional Past Medical History / Comment(s): HX FATTY LIVER, SINUS PROBLEMS AT TIMES, SEASONAL ALLERGIES, TIA, MURMUR. PAIN IN RT THIGH, LT CALF WITH WALKING, recent adm. for CP History of Any Multi-Drug Resistant Organisms: None Reported Past Surgical History: Coronary Bypass/CABG, Heart Catheterization, Heart Catheterization With Stent, Hysterectomy, Orthopedic Surgery, Tubal Ligation Additional Past Surgical History / Comment(s): RIGHT KNEE SURGERY, CATARACT SURGERY, ABD AORTOGRAM W/ RUNOFF, LT ILIAC ARTERY ANGIOGRAM W/STENT X4. CABG-5 VESSELS. Past Anesthesia/Blood Transfusion Reactions: No Reported Reaction Date of Last Stent Placement:: 07-20-22 Past Psychological History: Anxiety, Depression Smoking Status: Never smoker Past Alcohol Use History: Rare Past Drug Use History: None Reported - Past Family History Father Family Medical History: Coronary Artery Disease (CAD) Sister(s) Family Medical History: CVA/TIA, Deep Vein Thrombosis (DVT) General Exam Limitations: no limitations General appearance: alert, in no apparent distress Head exam: Present: atraumatic Eye exam: Present: normal appearance, PERRL ENT exam: Present: normal exam Neck exam: Present: normal inspection. Absent: tenderness, meningismus Respiratory exam: Present: normal lung sounds bilaterally. Absent: respiratory distress, wheezes Cardiovascular Exam: Present: regular rate, normal rhythm, systolic murmur GI/Abdominal exam: Present: soft. Absent: distended, tenderness Extremities exam: Present: normal capillary refill. Absent: full ROM (Known left humerus fracture) Neurological exam: Present: alert, oriented X3, CN II-XII intact. Absent: motor sensory deficit Psychiatric exam: Present: normal affect, normal mood Skin exam: Present: warm, dry, intact. Absent: cyanosis, diaphoretic Course Vital Signs 09/20/23 09/20/23 18:47 20:41 Temperature 98.1 F Pulse Rate 88 86 Respiratory 20 18 Rate Blood Pressure 185/70 207/85 O2 Sat by Pulse 98 95 Oximetry Medical Decision Making - Medical Decision Making Was pt. sent in by a medical professional or institution (, PA, V[employer] P[employer] FOR[employer]ING MACHINE OPERATOR, urgent care, hospital, or retirement...) When possible be specific @ -No Did you speak to anyone other than the patient for history (EMS, parent, family, police, friend...)? What history was obtained from this source @ -No Did you review nursing and triage notes (agree or disagree)? Why? @ -I reviewed and agree with nursing and triage notes Were old charts reviewed (outside hosp., previous admission, EMS record, old EKG, old radiological studies, urgent care reports/EKG's, retirement records)? Report findings @ -No old charts were reviewed Differential Diagnosis (chest pain, altered mental status, abdominal pain women, abdominal pain men, vaginal bleeding, weakness, fever, dyspnea, syncope, headache, dizziness, GI bleed, back pain, seizure, CVA, palpatations, mental health, musculoskeletal)? @ -Differential Altered Mental Status: Hypoglycemia, DKA, hypercapnia, ETOH, overdose, CO poisoning, trauma, myxedema coma, HTN encephalopathy, infection, encephalitis, psychosis, intercranial hemorrhage, hepatic encephalopathy, meningitis, CVA, this is not meant to be an all-inclusive list EKG interpreted by me (3pts min.). @Sinus rhythm with first-degree AV block, rate of 88, WI interval 257, QRS duration 94, QTc [address] segment elevation. X-rays interpreted by me (1pt min.). @ -X-ray of the chest negative for focal pneumonia, no acute findings CT interpreted by me (1pt min.). @CT showing chronic changes without acute abnormality U/S interpreted by me (1pt. min.). @ -None done What testing was considered but not performed or refused? (CT, X-rays, U/S, labs)? Why? @ -None What meds were considered but not given or refused? Why? @ -None Did you discuss the management of the patient with other professionals (andres farmer i.e. , PA, V[employer]ING MACHINE OPERATOR, lab, RT, psych nurse, medical social worker, regulatory compliance officer, teacher, business liaison officer, case repairer)? Give summary @ -No Was smoking cessation discussed for >3mins.? @ -No Was critical care preformed (if so, how long)? @ -No Were there social determinants of health that impacted care today? How? (Homelessness, low income, unemployed, alcoholism, drug addiction, transportation, low edu. Level, literacy, decrease access to med. care, alf, rehab)? @ -No Was there de-escalation of care discussed even if they declined (Discuss DNR or withdrawal of care, Hospice)? DNR status @ -No What co-morbidities impacted this encounter? (DM, HTN, Smoking, COPD, CAD, Cancer, CVA, ARF, Chemo, Hep., AIDS, mental health diagnosis, sleep apnea, morbid obesity)? @ -CAD, TIA, CVA Was patient admitted / discharged? Hospital course, mention meds given and route, prescriptions, significant lab abnormalities, going to OR and other pertinent info. @ -83-year-old female presenting with an episode of confusion. Patient has returned to baseline at the time my evaluation. I did obtain testing including laboratory testing, urinalysis, CT and chest x-ray. Workup shows chronic stable abnormalities. Patient is completely returned to normal and is eager for discharge. Family is agreeable with discharge at this time. She will continue aspirin, continued encouraging fluids. Undiagnosed new problem with uncertain prognosis? @ -No Drug Therapy requiring intensive monitoring for toxicity (Heparin, Nitro, Insulin, Cardizem)? @ -No Were any procedures done? @ -No Diagnosis/symptom? @Altered mental status, resolved Acute, or Chronic, or Acute on Chronic? @Acute Uncomplicated (without systemic symptoms) or Complicated (systemic symptoms)? @ -Default Side effects of treatment? @ -No Exacerbation, Progression, or Severe Exacerbation? @ -No Poses a threat to life or bodily function? How? (Chest pain, [place], [place], pneumonia, PE, COPD, DKA, ARF, appy, cholecystitis, CVA, Diverticulitis, Homicidal, Suicidal, threat to staff... and all critical care pts) @ -Low risk at this time - Lab Data Result diagrams: 09/20/23 19:07 09/20/23 19:07 Lab Results 09/20/23 09/20/23 09/20/23 Range/Units 18:59 19:07 19:07 WBC 11.0 H (3.8-10.6) k/uL RBC 3.77 L (3.80-5.40) m/uL Hgb 11.9 (11.4-16.0) gm/dL Hct 36.9 (34.0-46.0) % MCV 97.9 (80.0-100.0) fL MCH 31.6 (25.0-35.0) pg MCHC 32.3 (31.0-37.0) g/dL RDW 13.8 (11.5-15.5) % Plt Count 318 (150-450) k/uL MPV 9.3 Neutrophils % 71 % Lymphocytes % 18 % Monocytes % 6 % Eosinophils % 2 % Basophils % 0 % Neutrophils # 7.8 H (1.3-7.7) k/uL Lymphocytes # 2.0 (1.0-4.8) k/uL Monocytes # 0.6 (0-1.0) k/uL Eosinophils # 0.2 (0-0.7) k/uL Basophils # 0.0 (0-0.2) k/uL PT 10.7 (10.0-12.5) sec INR 1.0 (<1.2) APTT 22.8 (22.0-30.0) sec Sodium (137-145) mmol/L Potassium (3.5-5.1) mmol/L Chloride (98-107) mmol/L Carbon Dioxide (22-30) mmol/L Anion Gap mmol/L BUN (7-17) mg/dL Creatinine (0.52-1.04) mg/dL Est GFR (CKD-EPI)AfAm (>60 ml/min/1.73 sqM) Est GFR (CKD-EPI)NonAf (>60 ml/min/1.73 sqM) Glucose (74-99) mg/dL POC Glucose (mg/dL) 173 H (70-110) mg/dL POC Glu Bisque Finisher ID Baker, Devyn Calcium (8.4-10.2) mg/dL Total Bilirubin (0.2-1.3) mg/dL AST (14-36) U/L ALT (4-34) U/L Alkaline Phosphatase (38-126) U/L Creatine Kinase (30-135) U/L Total Protein (6.3-8.2) g/dL Albumin (3.5-5.0) g/dL Urine Color Urine Appearance (Clear) Urine pH (5.0-8.0) Ur Specific [place] (1.001-1.035) Urine Protein (Negative) Urine Glucose (UA) (Negative) Urine Ketones (Negative) Urine Blood (Negative) Urine Nitrite (Negative) Urine Bilirubin (Negative) Urine Urobilinogen (<2.0) mg/dL Ur Leukocyte Esterase (Negative) Urine RBC (0-5) /hpf Urine WBC (0-5) /hpf Ur Squamous Epith Cells (0-4) /hpf Urine Bacteria (None) /hpf Urine Mucus (None) /hpf 09/20/23 09/20/23 Range/Units 19:07 20:35 WBC (3.8-10.6) k/uL RBC (3.80-5.40) m/uL Hgb (11.4-16.0) gm/dL Hct (34.0-46.0) % MCV (80.0-100.0) fL MCH (25.0-35.0) pg MCHC (31.0-37.0) g/dL RDW (11.5-15.5) % Plt Count (150-450) k/uL MPV Neutrophils % % Lymphocytes % % Monocytes % % Eosinophils % % Basophils % % Neutrophils # (1.3-7.7) k/uL Lymphocytes # (1.0-4.8) k/uL Monocytes # (0-1.0) k/uL Eosinophils # (0-0.7) k/uL Basophils # (0-0.2) k/uL PT (10.0-12.5) sec INR (<1.2) APTT (22.0-30.0) sec Sodium 136 L (137-145) mmol/L Potassium 4.2 (3.5-5.1) mmol/L Chloride 106 (98-107) mmol/L Carbon Dioxide 20 L (22-30) mmol/L Anion Gap 10 mmol/L BUN 24 H (7-17) mg/dL Creatinine 0.55 (0.52-1.04) mg/dL Est GFR (CKD-EPI)AfAm >90 (>60 ml/min/1.73 sqM) Est GFR (CKD-EPI)NonAf 87 (>60 ml/min/1.73 sqM) Glucose 161 H (74-99) mg/dL POC Glucose (mg/dL) (70-110) mg/dL POC Glu Bisque Finisher ID Calcium 9.2 (8.4-10.2) mg/dL Total Bilirubin 0.4 (0.2-1.3) mg/dL AST 33 (14-36) U/L ALT 23 (4-34) U/L Alkaline Phosphatase 118 (38-126) U/L Creatine Kinase 42 (30-135) U/L Total Protein 6.4 (6.3-8.2) g/dL Albumin 3.5 (3.5-5.0) g/dL Urine Color Light Yellow Urine Appearance Clear (Clear) Urine pH 5.5 (5.0-8.0) Ur Specific [place] 1.031 (1.001-1.035) Urine Protein 1+ H (Negative) Urine Glucose (UA) 4+ H (Negative) Urine Ketones 1+ H (Negative) Urine Blood Negative (Negative) Urine Nitrite Negative (Negative) Urine Bilirubin Negative (Negative) Urine Urobilinogen <2.0 (<2.0) mg/dL Ur Leukocyte Esterase Small H (Negative) Urine RBC 3 (0-5) /hpf Urine WBC 18 H (0-5) /hpf Ur Squamous Epith Cells <1 (0-4) /hpf Urine Bacteria Rare H (None) /hpf Urine Mucus Rare H (None) /hpf Disposition Clinical Impression: AMS (altered mental status) Disposition: HOME SELF-CARE Condition: Fair Instructions (If sedation given, give patient instructions): Altered Mental Status (ED) Is patient prescribed a controlled substance at d/c from ED?: No Referrals: Miguelito Enriquez DO [Primary Care Provider] - 1-2 days Time of Disposition: 20:50
--- NOTE | 2023-09-20 19:42 | CT ---
EXAMINATION TYPE: CT brain wo con DATE OF EXAM: 09/20/2023 HISTORY: confused CT DLP: 1095.4 mGycm. Automated Exposure Control for Dose Reduction was Utilized. TECHNIQUE: CT scan of the head is performed without contrast. COMPARISON: CT 08/30/2023 FINDINGS: There is no acute intracranial hemorrhage. No mass of mass effect, or definite acute attenu ation defect. The multi focal encephalomalacic changes seen on the prior study are unchanged. Also un changed is the bilateral noel radiata and centrum semiovale nonspecific low-attenuation, presumably representing small vessel ischemic change. Extra-axial compartment is unremarkable. The globes are intact and the paranasal sinuses, cavities, a nd mastoid sinus air cells are clear. IMPRESSION: No definite acute process.
[2023-09-20 19:53] VITALS: TEMP 98.1
--- NOTE | 2023-09-20 19:59 | XR ---
EXAMINATION: XR chest 2V: 09/20/2023 7:46 PM CLINICAL INDICATION: altered mental status TECHNIQUE: Departmental protocol COMPARISON: 07/19/2022 FINDINGS: The lungs are clear. The pleural spaces are negative. The cardiac silhouette appears mildly enlarged, unchanged. The soft tissues are negative for acute findings. IMPRESSION: No definite acute radiographic process. However, left humeral head/neck is not well-visualized on thi s radiograph and, so, request clinical exclusion of acute fracture.
[2023-09-20 20:42] LABS: Appearance,Urine Clear (Clear); Bacteria,Urine Rare /hpf; Bilirubin,Urine Negative (Negative); Blood,Urine Negative (Negative); Color,Urine Light Yellow; Glucose,Urine (UA) 4+ (Negative); Ketones,Urine 1+ (Negative); Leukocyte Esterase,Urine Small (Negative); Mucus,Urine Rare /hpf; Nitrite,Urine Negative (Negative); PH, Urine 5.5 (5.0-8.0); Protein,Urine 1+ (Negative); RBC,Urine 3 /hpf (0-5); Specific Gravity,Urine 1.031 (1.001-1.035); Squamous Epithelial Cell,Urine <1 /hpf (0-4); Urobilinogen,Urine <2.0 mg/dL (<2.0); WBC,Urine 18 /hpf (0-5)
[2023-09-20 21:05] VITALS: BP 207/85; PULSE 86; RESP 18
== END 2023-09-20 21:17 | disposition home or self-care (01) ==
LOC: EC 18:44
DX: R41.82 Altered mental status, unspecified (principal); Z88.2 Allergy status to sulfonamides; Z91.013 Allergy to seafood
CPT/HCPCS: 36415; 70450; 71046; 80053; 81001; 82550; 85025; 85610; 85730; 93005; 99284

== ENCOUNTER → 2023-10-03 | Outpatient (CLI) | payer MEDICARE, BC ==
[2023-10-03 15:48] LABS: Basophils # (A) 0.03 X 10*3/uL (0.00-0.10); Basophils % (A) 0.5 %; Eosinophils # (A) 0.15 X 10*3/uL (0.04-0.35); Eosinophils % (A) 2.5 %; HGB 11.2 g/dL (12.0-15.0); Lymphocytes # (A) 1.44 X 10*3/uL (0.90-5.00); MCH 31.5 pg (27.0-32.0); MCV 98.3 FL (80.0-97.0); Mean Platelet Volume 11.7 FL (9.5-12.2); Monocytes # (A) 0.35 X 10*3/uL (0.20-1.00); Monocytes % (A) 5.8 %; NRBC Per 100 WBC 0 X 10*3/uL (0.00-0.01); Neutrophils % (A) 66.9 %; Platelet Count 263 X 10*3/uL (140-440); RBC 3.56 X 10*6/uL (4.10-5.20); RDW 14.6 % (11.5-14.5); WBC 5.99 X 10*3/uL (4.50-10.00)
[2023-10-03 16:03] LABS: BUN/Creat Ratio 33.83 Ratio (12.00-20.00); Blood Urea Nitrogen 20.3 mg/dL (9.0-27.0); Calcium 9.5 mg/dL (8.7-10.3); Carbon Dioxide 26.8 mmol/L (21.6-31.8); Chloride 100 mmol/L (96-109); Glucose 298 mg/dL (70-110); Potassium 4.7 mmol/L (3.5-5.5); Sodium 139 mmol/L (135-145)
[2023-10-03 17:32] LABS: INR 1.06 sec (0.93-1.11); Prothrombin Time 11.4 sec (9.9-11.9)
== END | disposition home or self-care (01) ==
LOC: LABPAT 10:13
PROVIDERS: ATTEND Orthopaedic Surgery
DX: Z01.812 Encounter for preprocedural laboratory examination (principal); Z22.322 Carrier or suspected carrier of Methicillin resistant Staphylococcus aureus; S42.232A 3-part fracture of surgical neck of left humerus, initial encounter for closed fracture
CPT/HCPCS: 36415; 80048; 85025; 85610; 87070

== ENCOUNTER 2023-10-10 10:50 | Day surgery (SDC) | payer MEDICARE, BC ==
--- NOTE | 2023-10-08 09:08 | P.HPOR ---
History of Present Illness H&P Date: 10/08/23 Chief Complaint: Left shoulder pain The patient is a 83-year-old female who presents with left shoulder pain after an injury 08/30/2023. She fell injuring her shoulder. Subsequent she was treated in a sling. She's had persistent/progressive pain since the initial injury. She is unable to use her left shoulder at all. Review of Systems As per HPI Past Medical History Past Medical History: Coronary Artery Disease (CAD), Chest Pain / Angina, CVA/TIA, Diabetes Mellitus, GERD/Reflux, Hearing Disorder / Deafness, Hyperlipidemia, Hypertension, Osteoarthritis (OA), Thyroid Disorder, Vascular Disorder Additional Past Medical History / Comment(s): HX FATTY LIVER, SINUS PROBLEMS AT TIMES, SEASONAL ALLERGIES, TIA, MURMUR. PAIN IN RT THIGH, LT CALF WITH WALKING, recent adm. for CP History of Any Multi-Drug Resistant Organisms: None Reported Past Surgical History: Coronary Bypass/CABG, Heart Catheterization, Heart Catheterization With Stent, Hysterectomy, Orthopedic Surgery, Tubal Ligation Additional Past Surgical History / Comment(s): RIGHT KNEE SURGERY, CATARACT SURGERY, ABD AORTOGRAM W/ RUNOFF, LT ILIAC ARTERY ANGIOGRAM W/STENT X4. CABG-5 VESSELS. Past Anesthesia/Blood Transfusion Reactions: No Reported Reaction Date of Last Stent Placement:: 07-20-22 Past Psychological History: Anxiety, Depression Smoking Status: Never smoker Past Alcohol Use History: Rare Past Drug Use History: None Reported - Past Family History Father Family Medical History: Coronary Artery Disease (CAD) Sister(s) Family Medical History: CVA/TIA, Deep Vein Thrombosis (DVT) Medications and Allergies Home Medications Medication Instructions Recorded Confirmed Type Citalopram Hydrobromide [CeleXA] 20 mg PO DAILY@1200 10/21/14 09/20/23 History Pantoprazole Sodium 40 mg PO DAILY@1200 10/21/14 09/20/23 History Multivitamins, Thera [Multivitamin 1 tab PO DAILY 08/13/17 09/20/23 History (formulary)] Cholecalciferol [Vitamin D3 (25 75 mcg PO DAILY 08/03/20 09/20/23 History Mcg = 1000 Iu)] Pioglitazone [Actos] 30 mg PO DAILY@1200 08/03/20 09/20/23 History metFORMIN HCL [Glucophage] 500 mg PO AC-BID 08/03/20 09/20/23 History Dapagliflozin Propanediol [Farxiga] 10 mg PO DAILY@1200 07/20/22 09/20/23 History Isosorbide Mononitrate ER [Imdur] 30 mg PO DAILY 07/20/22 09/20/23 History Nitroglycerin Sl Tabs [Nitrostat] 0.4 mg SL Q5M PRN 07/20/22 09/20/23 History Losartan [Cozaar] 50 mg PO DAILY #30 tab 07/22/22 09/20/23 Rx Atorvastatin [Lipitor] 40 mg PO HS 08/01/22 09/20/23 History HYDROcodone/APAP 5-325MG [[place] 1 - 2 tab PO Q6HR PRN 3 Days #12 08/30/23 09/20/23 Rx 5-325] tab Ascorbic Acid [Vitamin C] 500 mg PO DAILY 09/20/23 09/20/23 History Aspirin 81 mg PO DAILY@1200 09/20/23 09/20/23 History Ferrous Sulfate [Feosol] 325 mg PO DAILY@1200 09/20/23 09/20/23 History Levothyroxine Sodium [Synthroid] 112 mcg PO DAILY 09/20/23 09/20/23 History Allergies Allergy/AdvReac Type Severity Reaction Status Date / Time shellfish derived [Shellfish] Allergy Severe Swelling Verified 09/20/23 19:23 in face and throat, Nausea & Vomiting & Diarrhea Sulfa (Sulfonamide Allergy Rash/Hives, Verified 09/20/23 19:23 Antibiotics) Swelling Physical Examination - Shoulder left Appearance: swelling Tenderness with palpation: anterior, bicipital groove Pain: other (With any attempted range of motion) Results The patient is a well-developed well-nourished female approximately 4 foot 10, 95 pounds of active [place] habit[place]. HEENT exam is nonfocal, neck is supple. She's tender about the left anterior glenohumeral joint. She has moderate crepitus. She has pain with any attempted range of motion. She has moderate anterior swelling and ecchymosis. Skin is intact. She is nontender about the elbow and wrist. Her distal neurovascular exam appears intact in left upper extremity. - Diagnostic results Shoulder x-ray: image reviewed (2 views of the left shoulder obtaining the office show a comminuted displaced three-part proximal humerus fracture.) Assessment and Plan Assessment: Displaced/comminuted left three-part proximal humerus fracture History of coronary artery disease status post CABG Plan: I talked the patient and her family at length regarding her condition will treatment options. At this point she is quite symptomatic having significant pain and limitation despite attempted conservative measures. After a thorough discussion she opts to proceed with surgery. We'll plan to proceed with left reverse total shoulder arthroplasty.
[2023-10-09 09:43] VITALS: BMI 16.9
[~2023-10-10 10:50] MED LIST changes: +HYDROmorphone 0.5 MG/0.5 ML SYRINGE IVP PRN; +LACTATED RINGERS 1,000 ML IV SCH; +LIDOCAINE 1% (10MG/ML) FOR IV START INTRADERMA PRN; -SODIUM CHLORIDE 0.9% 1,000 ML in EMPTY BAG 1 BAG IV ONE; +TRANEXAMIC 1,000 MG/100ML-NACL 1,000 MG in SALINE 1 100ML.BAG IVPB PRN
[2023-10-10] MEDS: LACTATED RINGERS 1,000 ML IV SCH (11:36)
[2023-10-10 11:41] LABS: Glucose,Whole Blood 153 mg/dL (70-110)
[2023-10-10] MEDS: MELOXICAM 7.5 MG TAB PO PRN (11:57)
[2023-10-10] MEDS: ACETAMINOPHEN TAB 500 MG TAB PO PRN (11:57)
[2023-10-10] MEDS: ONDANSETRON 4 MG/2 ML VIAL IVP ONE (11:58)
[2023-10-10] MEDS: DEXAMETHASONE SOD PHOSPHATE 4 MG/ML 1 ML VIAL IV ONE (11:58)
[2023-10-10] MEDS: MIDAZOLAM 2 MG/2 ML VIAL IVP ONE (12:06)
--- NOTE | 2023-10-10 12:17 | P.ANPRN ---
Procedure Note - Anesthesia - Nerve Block Performed Left Interscalene Single Date of Procedure: 10/10/23 Procedure Start Time: 12:05 Procedure Stop Time: 12:13 Location of Patient: PreOp Indication: Acute Post-Operative Pain, Requested by Surgeon Specifically requested for management of pain by DrTom: Edilson Dugan Sedation Type: Sedate with meaningful contact maintained Preparation: Sterile Prep Position: Sitting Ultrasound used to visualize needle placement: Yes Ultrasound used to observe medication spread: Yes Injectate: 0.5% Ropivacaine (see comment for volume) (30 cc) Blood Aspirated: No Pain Paresthesia on Injection Noted: No Resistance on Injection: Normal Image Stored and Saved: Yes Events: Uneventful and Well Tolerated
[2023-10-10] MEDS: hydrALAZINE HCL 20 MG/ML 1 ML VIAL IVP ONE (12:30)
[2023-10-10] MEDS: LACTATED RINGERS 1,000 ML IV ONE ×2 (13:54→14:42)
[2023-10-10] MEDS ORDERED: SENNOSIDES-DOCUSATE SODIUM 1 EACH TAB PO PRN (15:14)
--- NOTE | 2023-10-10 15:44 | P.OP ---
Date of Procedure: 10/10/23 Preoperative Diagnosis: Displaced/comminuted left three-part proximal humerus fracture Postoperative Diagnosis: Same Procedure(s) Performed: Left reverse total shoulder arthroplastycemented Implants: Depuy Delta Xtend size 8 long cemented humeral stem, size 1 epiphysis, 38+3 articular surface, 38 mm glenosphere with standard baseplate. Anesthesia: [facility] Surgeon: Edilson Dugan Estimated Blood Loss (ml): 100 Pathology: none sent Condition: stable Disposition: PACU Indications for Procedure: The patient is an 83-year-old female who presents with a left shoulder injury 6 weeks ago. Initially she was treated conservatively for a proximal humerus fracture. Upon follow-up she was noted to have significant displacement of a comminuted three-part proximal humerus fracture. A discussion of the risks and benefits of operative intervention was made with the patient and her family. She was having significant pain therefore they decided to proceed. Operative risk to include infection, neurovascular injury, development of blood clots, pos sible development of nonunion, possible instability, possible need for subsequent procedures was discussed. Informed consent was obtained. Operative Findings: As below Description of Procedure: The patient was brought to the operating room, and after induction of general anesthesia was placed in a beachchair position. The bony prominences were appropriately padded. The left upper extremity was prepped and draped in normal fashion. The bony outlines the coracoid process, distal clavicle, and acromion were outlined with a skin marker. A pulse centimeter deltopectoral incision was made lateral to the coracoid process. Skin was incised sharply. Subcutaneous tissues were divided bluntly. Electrocautery was used for hemostasis. The cephalic vein was identified and gently retracted laterally with the deltoid. The deltopectoral was bluntly developed. Subdeltoid adhesions were then released. The self-retaining retractor was placed. The conjoined tendon was retracted medially and the deltoid laterally. The greater and lesser tuberosity fragments were then . The biceps was perched over the anterior shaft fragment. This was then released. The greater and lesser tuberosities were tagged with #2 Ethibond suture. The head was then extracted. An anterior and posterior retractors placed. Remaining biceps was removed. A guidepin was placed in the inferior aspect of the glenoid with the guide slightly tilting inferior. The reamer was used down to a bleeding bony surface. The central peg hole was drilled. The standard baseplate was inserted with good purchase. Inferior, superior, and posterior locking screws the appropriate length were placed. Good purchase was obtained. The 38 mm glenosphere was inserted over a guidewire. This was fully seated. Care was taken to avoid any soft tissue interposition. Attention was then paid towards preparing the proximal humerus. The humeral canal was reamed up to 8 mm. The proximal humeral clamp was utilized in 30 degrees of retroversion holding a long size 8 trial stem with a size 1 epiphysis. This is placed in approximately 20 to 30 degrees of retroversion. 38+3 trial articular surface is placed. The shoulder was gently reduced. I was able to obtain good soft tissue tension with adequate stability in flexion and extension with internal and external rotation. The shoulder was gently dislocated. The trial components were then removed. The final size 8 long cemented humeral stem along with a size 1 epiphysis was fully seated after hand pressurizing the cement. After the cement had sufficiently hardened, there was good rotational stability. The 38 mm + 3 articular surface was impacted. The shoulder again was gently reduced and taken through range of motion. Again it was felt to be stable in all planes. Pulsatile lavage was utilized. The greater tuberosities were reattached to each other with #2 Ethibond suture. The rotator interval was closed in a similar fashion. The deltopectoral interval was closed with interrupted 2-0 Vicryl sutures. The skin was reapproximated with 3-0 subcuticular Prolene suture. Steri-Strips were applied. A sterile dressing was applied. A sling was placed. The patient was awoken from general anesthesia and transferred to recovery room in stable condition. Blood loss was estimated at 100 mL. No complications were incurred. Sponge and needle counts were correct at the end the case. Paulo DELEON assisted during the major components of the case to include exposure, glenoid and humeral preparation, implantation, and closure.
[2023-10-10 15:47] LABS: Glucose,Whole Blood 189 mg/dL (70-110)
--- NOTE | 2023-10-10 16:45 | XR ---
EXAMINATION TYPE: XR shoulder limited LT DATE OF EXAM: 10/10/2023 COMPARISON: 08/30/2023 HISTORY: Left shoulder prosthesis TECHNIQUE: AP left shoulder FINDINGS: There is placement of a left shoulder prosthesis with glenoid component. The stem extends t o nearly the metaphysis of the distal humerus. Fracture is identified along the lateral aspect may be a residual greater tuberosity. An additional fracture line is along the medial proximal metaphysis w hich appears to be the prior fracture at the neck of the humerus. New fractures are not clearly ident ified. IMPRESSION: 1. Placement of a left shoulder prosthesis. No new fractures are identified. 2. There is partial visualization of what appears to be the patient's presurgical fracture at the nec k of the humerus.
[2023-10-10] MEDS ORDERED: DEXTROSE 50% SYRINGE 50 ML IVP PRN ×2 (17:59)
[2023-10-10 18:11] LABS: Basophils % (A) 0 %; Eosinophils % (A) 0 %; HCT 34.6 % (34.0-46.0); HGB 10.9 gm/dL (11.4-16.0); Hypochromasia Slight; Lymphocytes # (A) 0.7 k/uL (1.0-4.8); Lymphocytes % (A) 5 %; MCH 32.3 pg (25.0-35.0); MCHC 31.5 g/dL (31.0-37.0); MCV 102.2 fL (80.0-100.0); Macrocytosis Slight; Mean Platelet Volume 9.1; Monocytes # (A) 0.6 k/uL (0-1.0); Monocytes % (A) 5 %; Neutrophils # (A) 12.5 k/uL (1.3-7.7); Neutrophils % (A) 90 %; Platelet Count 253 k/uL (150-450); RBC 3.38 m/uL (3.80-5.40); RDW 14.6 % (11.5-15.5)
[2023-10-10] MEDS: droPERidol 5 MG/2 ML VIAL IVP ONE (19:19)
[2023-10-10] MEDS: INSULIN ASPART (NovoLOG) 100 UNIT/ML VIAL SQ SCH (19:20)
[2023-10-10] MEDS: metFORMIN 500 MG TAB PO SCH (19:21)
[2023-10-10] MEDS: ATORVASTATIN 40 MG TAB PO SCH (19:59)
[2023-10-10 20:23] LABS: Glucose,Whole Blood 176 mg/dL (70-110)
--- NOTE | 2023-10-10 21:52 | P.CONS ---
History of Present Illness - Reason for Consult Consult date: 10/10/23 Medical management Requesting physician: Edilson Dugan - Chief Complaint Left shoulder surgery - History of Present Illness Pleasant 83-year-old patient, follows with PCP Dr. Enriquez. Patient had a fall with injury to her left shoulder on August 20, 2023. She was treated in a sling. Had persistent progressive pain since the initial injury. Not able to use her left shoulder at all. Earlier today patient underwent left reverse total shoulder arthroplasty cemented. By Dr. Edilson Dugan. Postprocedure laying in bed. Left arm in a sling. Denies any pain. Patient is able to answer simple questions. Otherwise forgetful. Review of systems: GEN.: None EYES: None HEENT: Decreased hearing NECK: None RESPIRATORY: None CARDIOVASCULAR: None GASTROINTESTINAL: None GENITOURINARY: None MUSCULOSKELETAL: Joint pains e LYMPHATICS: None HEMATOLOGICAL: None PSYCHIATRY: Forgetful e NEUROLOGICAL: None Social history: Denies any smoking alcohol. Lives with her son Physical examination: VITAL SIGNS: 97.9, 87, 16, 145/56, 94% room air GENERAL: BMI 16.9, lying in bed. EYES: Pupils equal. Conjunctiva glo l. HEENT: External appearance of nose and ears normal, oral cavity grossly normal. Decreased hearing NECK: JVD not raised; masses not palpable. HEART: First and second heart sounds are normal; no edema. LUNGS: Respiratory rate normal; clear to auscultation. ABDOMEN: Soft, nontender, liver spleen not palpable, no masses palpable. PSYCH: [Patient knows she is in the hospital but cannot exactly tell the name. She thinks this is spring. Mood affect normal. MUSCULOSKELETAL:No Clubbing/cyanosis;muscles-grossly intact. Left arm in a sling. Evidence of OA. NEUROLOGICAL: Cranial nerves grossly intact; no facial asymmetry, power and sensation grossly intact. LYMPHATICS: No lymph nodes palpable in the axilla and neck INVESTIGATIONS, reviewed in the clinical context: October 10, 2023: White count 14 hemoglobin 10.9 platelets 253 October 02: White count 5.9 hemoglobin 11.2 platelets 263 potassium 4.7 creatinine 0.6 EKG tracing personally reviewed by me-[September 19] sinus rhythm. Nonspecific T/ST changes. Chest x-ray film personally reviewed by me-[September 19] nonspecific findings Assessment plan: -Left proximal humerus fracture secondary to fall on August 30, 2023. Undergone reverse left total shoulder arthroplasty. Left arm in a sling. Pain control. -CAD Aspirin, Lopressor -Depression and anxiety not otherwise specified Celexa -Essential hypertension Lopressor, Cozaar -Normocytic anemia. Cause unknown -Hyperlipidemia Lipitor 40 mg nightly -Diabetes mellitus type 2 and oral hypoglycemic Actos. Glucophage. Farxiga.. 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 Home medication resumed. Thank you Dr. Dugan Past Medical History Past Medical History: Coronary Artery Disease (CAD), Chest Pain / Angina, CVA/TIA, Diabetes Mellitus, GERD/Reflux, Hearing Disorder / Deafness, Hyperlipidemia, Hypertension, Myocardial Infarction ([place]), Osteoarthritis (OA), Thyroid Disorder, Vascular Disorder Additional Past Medical History / Comment(s): HX FATTY LIVER, SINUS PROBLEMS AT TIMES, SEASONAL ALLERGIES, HX TIA, HEART MURMUR, BILATERAL HEARING AID USE. Last Myocardial Infarction Date:: Unknown History of Any Multi-Drug Resistant Organisms: None Reported Past Surgical History: Coronary Bypass/CABG, Heart Catheterization, Heart Catheterization With Stent, Hysterectomy, Orthopedic Surgery, Tubal Ligation Additional Past Surgical History / Comment(s): RIGHT KNEE SURGERY, CATARACT SURGERY, ABD AORTOGRAM W/ RUNOFF, LEFT ILIAC ARTERY ANGIOGRAM WITH STENT X4, CABG-5 VESSELS. Past Anesthesia/Blood Transfusion Reactions: No Reported Reaction Date of Last Stent Placement:: 07-20-22 Past Psychological History: Anxiety, Depression Smoking Status: Never smoker Past Alcohol Use History: Rare Past Drug Use History: None Reported - Past Family History Father Family Medical History: Coronary Artery Disease (CAD) Sister(s) Family Medical History: CVA/TIA, Deep Vein Thrombosis (DVT) Medications and Allergies Home Medications Medication Instructions Recorded Confirmed Type Citalopram Hydrobromide [CeleXA] 20 mg PO DAILY@1200 10/21/14 10/10/23 History Pantoprazole Sodium 40 mg PO DAILY@119910/21/14 10/10/23 History Multivitamins, Thera [Multivitamin 1 tab PO DAILY 08/13/17 10/10/23 History (formulary)] Cholecalciferol [Vitamin D3 (25 75 mcg PO DAILY 08/03/20 10/10/23 History Mcg = 1000 Iu)] Pioglitazone [Actos] 30 mg PO DAILY@1200 08/03/20 10/10/23 History metFORMIN HCL [Glucophage] 500 mg PO AC-BID 08/03/20 10/10/23 History Dapagliflozin Propanediol [Farxiga] 10 mg PO DAILY@1200 07/20/22 10/10/23 History Isosorbide Mononitrate ER [Imdur] 30 mg PO QAM 07/20/22 10/10/23 History Atorvastatin [Lipitor] 40 mg PO HS 08/01/22 10/10/23 History HYDROcodone/APAP 5-325MG [[place] 1 - 2 tab PO Q6HR PRN 3 Days #12 08/30/23 10/10/23 Rx 5-325] tab Ascorbic Acid [Vitamin C] 500 mg PO DAILY 09/20/23 10/10/23 History Aspirin 81 mg PO DAILY@1200 09/20/23 10/10/23 History Ferrous Sulfate [Feosol] 325 mg PO DAILY@1200 09/20/23 10/10/23 History Levothyroxine Sodium [Synthroid] 112 mcg PO QAM 09/20/23 10/10/23 History Losartan [Cozaar] 50 mg PO QAM 10/09/23 10/10/23 History Allergies Allergy/AdvReac Type Severity Reaction Status Date / Time shellfish derived [Shellfish] Allergy Severe Swelling Verified 10/10/23 11:36 in face and throat, Nausea & Vomiting & Diarrhea Sulfa (Sulfonamide Allergy Rash/Hives, Verified 10/10/23 11:36 Antibiotics) Swelling Physical Exam Vitals: Vital Signs Temp Pulse Pulse Resp BP BP Pulse Ox 10/10/23 17:55 97.9 F 87 16 145/56 94 L 10/10/23 16:34 88 16 151/67 95 10/10/23 16:18 91 16 155/68 91 L 10/10/23 16:03 87 16 149/67 98 10/10/23 15:47 91 16 159/72 98 10/10/23 15:31 98 F 95 16 167/72 95 10/10/23 12:41 65 16 187/84 100 10/10/23 12:34 63 16 186/64 100 10/10/23 12:22 61 16 210/87 100 10/10/23 11:27 97.3 F L 61 16 231/93 100 Intake and Output 10/10/23 10/10/23 10/10/23 06:59 14:59 22:59 Intake Total 1150 100 Output Total 100 Balance 1150 0 Intake: IV 1150 100 Output: Estimated Blood Loss 100 Other: # Bowel Movements 0 Weight 36.7 kg 36.7 kg Results CBC & Chem 7: 10/10/23 17:45 Labs: Abnormal Lab Results - Last 24 Hours (Table) 10/10/23 10/10/23 10/10/23 Range/Units 11:32 15:45 17:45 WBC 14.0 H (3.8-10.6) k/uL RBC 3.38 L (3.80-5.40) m/uL Hgb 10.9 L (11.4-16.0) gm/dL MCV 102.2 H (80.0-100.0) fL Neutrophils # 12.5 H (1.3-7.7) k/uL Lymphocytes # 0.7 L (1.0-4.8) k/uL POC Glucose (mg/dL) 153 H 189 H (70-110) mg/dL 10/10/23 Range/Units 20:22 WBC (3.8-10.6) k/uL RBC (3.80-5.40) m/uL Hgb (11.4-16.0) gm/dL MCV (80.0-100.0) fL Neutrophils # (1.3-7.7) k/uL Lymphocytes # (1.0-4.8) k/uL POC Glucose (mg/dL) 176 H (70-110) mg/dL
[2023-10-11] MEDS: HYDROcodone/APAP 5-325MG 1 EACH TAB PO PRN ×2 (00:10→05:10)
[2023-10-11] MEDS: hydrOXYzine pamoate 25 MG CAP PO PRN (01:02)
[2023-10-11] MEDS: HYDROmorphone 0.5 MG/0.5 ML SYRINGE IVP PRN ×2 (02:29→02:36)
[2023-10-11] MEDS: LEVOTHYROXINE 112 MCG TAB PO SCH (06:13)
[2023-10-11 06:41] LABS: Glucose,Whole Blood 174 mg/dL (70-110)
[2023-10-11] MEDS ORDERED: ACETAMINOPHEN TAB 325 MG TAB PO PRN (08:15)
[2023-10-11 08:41] VITALS: BP 186/70; PULSE 104; RESP 16; TEMP 98.9
[2023-10-11] MEDS: LOSARTAN 50 MG TAB PO SCH (09:13)
[2023-10-11] MEDS: ASPIRIN 325 MG TAB PO SCH (09:13)
[2023-10-11] MEDS: MULTIVITAMINS, THERA 1 EACH TAB PO SCH (09:13)
[2023-10-11] MEDS: ISOSORBIDE MONONITRATE ER 30 MG TAB.ER.24H PO SCH (09:13)
[2023-10-11] MEDS: FERROUS SULFATE 325 MG TAB PO SCH (09:13)
[2023-10-11] MEDS: ASCORBIC ACID 500 MG TAB PO SCH (09:13)
[2023-10-11] MEDS: traMADol 50 MG TAB PO PRN (09:20)
--- NOTE | 2023-10-11 11:19 | P.DS ---
Providers Date of admission: 10/10/2023 Expected date of discharge: 10/11/23 Attending physician: Edilson Dugan Consults: 10/10/23 15:17 Consult Physician Routine Consulting Provider: Jam Sargent Consult Reason/Comments: Medical Management s/p reverse left total shoulder arthroplasty Do you want consulting provider notified?: Yes Primary care physician: Miguelito Phelps [facility] Course: Date of admission: 10/10/2023 Date of discharge: 10/11/2023 Admission diagnosis: Displaced/comminuted left three-part proximal humerus fracture Discharge diagnosis: Same Attending physician: Dr. Dugan Surgical procedures: Left reverse total shoulder arthroplasty Brief history: Patient is a 83-year-old female with a history of displaced/comminuted left three-part proximal aorta fracture. At this point patient has failed conservative treatment measures and has opted to proceed with a elective left reverse total shoulder arthroplasty cemented. Hospital course: Details of patient's surgery can be found in operative report. Patient tolerated the procedure well and was subsequently transported to orthopedic floor. Patient's orthopeidc and medical care was provided daily. Patient had daily laboratory tests performed for evaluation of overall blood counts. Patient had daily physical therapy to include strengthening range of motion as well as education with walker ambulation. Patient was treated with aspirin for their postoperative DVT prophylaxis during their inpatient stay. Patient was noted to have a relatively uneventful postoperative course. Patient reported satisfactory pain control with oral pain medications by postoperative day 1. Patient showed satisfactory progress with physical therapy. Patient moved steadily through the program and had no difficulty meeting the goals by postoperative day 1. Given patient's otherwise satisfactory course and having met physical therapy goals, plan is to discharge patient home on postoperative day 1. Discharge condition/disposition: Patient will be discharged home in stable condition. Discharge medications: Instructions are given on resumption of patient's normal daily medications per primary care recommendation, in addition patient will be prescribed Filer 5 mg/325 mg; senna; aspirin 325 mg daily 1 month. Orthopedic Discharge Instructions: 1. Wound care and infection precautions, keep incision dry and covered while showering, no lotions, creams, moisturizers. No soaking, pools, hot tubs. Do not scrub over incision. 2. Non-weight bearing left upper extremity 3. Ice when necessary. Do not exceed 20 minutes per hour with ice pack. 4. Utilize sling to left upper extremity until seen at first follow up appointment. 5. Pain meds and anticoagulants per prescription. 6. Pain medication has potential to cause constipation. Increase oral fluid and fiber intake. Contact primary care provider if you have not had a bowel movement within 48 hours after discharge. 7. No anti-inflammatory medication until discussed at first post operative visit, this including Motrin, Aleve, Mobic, Diclofenac, aspirin. 8. Follow up in office at 2 weeks postop with Say Jones PA-C / Paulo Ricardo PA-C 9. Follow up with your primary care doctor 7-10 days after discharge. 10. Contact [facility] with any questions, . Keep incision clean, dry, intact. While showering, cover steri-strips/incision with Saran wrap. Keep fusion tape on until follow-up appointment in office in 2 weeks Assessment: Displaced/comminuted left three-part proximal humerus fracture Procedures: Left reverse total shoulder arthroplasty Patient Condition at Discharge: Good Plan - Discharge Summary Discharge Rx Participant: Yes New Discharge Prescriptions: New Sennosides-Docusate Sodium [Senokot-S] 2 each PO HS PRN #30 tab PRN Reason: Constipation Aspirin 325 mg PO DAILY #28 tab HYDROcodone/APAP 5-325MG [Filer 5-325] 1 tab PO Q6HR PRN #28 tab PRN Reason: Pain Continue Citalopram Hydrobromide [CeleXA] 20 mg PO DAILY@1200 Pantoprazole Sodium 40 mg PO DAILY@1200 Multivitamins, Thera [Multivitamin (formulary)] 1 tab PO DAILY Pioglitazone [Actos] 30 mg PO DAILY@1200 metFORMIN HCL [Glucophage] 500 mg PO AC-BID Cholecalciferol [Vitamin D3 (25 Mcg = 1000 Iu)] 75 mcg PO DAILY Atorvastatin [Lipitor] 40 mg PO HS Aspirin 81 mg PO DAILY@1200 Levothyroxine Sodium [Synthroid] 112 mcg PO QAM Ascorbic Acid [Vitamin C] 500 mg PO DAILY Losartan [Cozaar] 50 mg PO QAM Isosorbide Mononitrate ER [Imdur] 30 mg PO QAM Dapagliflozin Propanediol [Farxiga] 10 mg PO DAILY@1200 Ferrous Sulfate [Iron (65 MG Elemental)] 325 mg PO DAILY@1200 No Action HYDROcodone/APAP 5-325MG [Filer 5-325] 1 - 2 tab PO Q6HR PRN 3 Days #12 tab PRN Reason: Pain Discharge Medication List Citalopram Hydrobromide [CeleXA] 20 mg PO DAILY@1200 10/21/14 [History] Pantoprazole Sodium 40 mg PO DAILY@1200 10/21/14 [History] Multivitamins, Thera [Multivitamin (formulary)] 1 tab PO DAILY 08/13/17 [History] Cholecalciferol [Vitamin D3 (25 Mcg = 1000 Iu)] 75 mcg PO DAILY 08/03/20 [History] Pioglitazone [Actos] 30 mg PO DAILY@1200 08/03/20 [History] metFORMIN HCL [Glucophage] 500 mg PO AC-BID 08/03/20 [History] Dapagliflozin Propanediol [Farxiga] 10 mg PO DAILY@1200 07/20/22 [History] Isosorbide Mononitrate ER [Imdur] 30 mg PO QAM 07/20/22 [History] Atorvastatin [Lipitor] 40 mg PO HS 08/01/22 [History] HYDROcodone/APAP 5-325MG [Filer 5-325] 1 - 2 tab PO Q6HR PRN 3 Days #12 tab 08/30/23 [Rx] Ascorbic Acid [Vitamin C] 500 mg PO DAILY 09/20/23 [History] Aspirin 81 mg PO DAILY@1200 09/20/23 [History] Ferrous Sulfate [Iron (65 MG Elemental)] 325 mg PO DAILY@1200 09/20/23 [History] Levothyroxine Sodium [Synthroid] 112 mcg PO QAM 09/20/23 [History] Losartan [Cozaar] 50 mg PO QAM 10/09/23 [History] Aspirin 325 mg PO DAILY #28 tab 10/11/23 [Rx] HYDROcodone/APAP 5-325MG [Filer 5-325] 1 tab PO Q6HR PRN #28 tab 10/11/23 [Rx] Sennosides-Docusate Sodium [Senokot-S] 2 each PO HS PRN #30 tab 10/11/23 [Rx] Follow up Appointment(s)/Referral(s): Paulo Ricardo, G[place] [PHYSICIAN WINE AND SPIRITS CLERK] - 2 Weeks Miguelito Enriquez DO [Primary Care Provider] - 1 Week Activity/Diet/Wound Care/Special Instructions: Orthopedic Discharge Instructions: 1. Wound care and infection precautions, keep incision dry and covered while showering, no lotions, creams, moisturizers. No soaking, pools, hot tubs. Do not scrub over incision. 2. Non-weight bearing left upper extremity 3. Ice when necessary. Do not exceed 20 minutes per hour with ice pack. 4. Utilize sling to left upper extremity until seen at first follow up appointment. 5. Pain meds and anticoagulants per prescription. 6. Pain medication has potential to cause constipation. Increase oral fluid and fiber intake. Contact primary care provider if you have not had a bowel movement within 48 hours after discharge. 7. No anti-inflammatory medication until discussed at first post operative visit, this including Motrin, Aleve, Mobic, Diclofenac, aspirin. 8. Follow up in office at 2 weeks postop with Say Jones PA-C / Paulo Ricardo PA-C 9. Follow up with your primary care doctor 7-10 days after discharge. 10. Contact [facility] with any questions, . Keep incision clean, dry, intact. While showering, cover steri-strips/incision with Saran wrap. Keep fusion tape on until follow-up appointment in office in 2 weeks Discharge Disposition: HOME SELF-CARE
--- NOTE | 2023-10-11 11:23 | P.PN ---
Subjective Progress Note Date: 10/11/23 Principal diagnosis: Displaced/comminuted left three-part proximal humerus fracture Patient was seen at bedside this morning sitting up in chair with sling present to left upper extremity and bulky dressing present over left shoulder. Patient says her recovery has been going well. Patient says she has been up walking a little bit with staff by her side. Patient states she has urinated couple times since surgery yesterday. Patient says the pain is tolerable. Patient feels that the [place] is little bit too strong for her. Patient denies any other iss ues this time. Patient denies chest pain, fever, shortness breath, nausea, oncology in vision, loss of bowel/bladder control. Objective - Vital Signs Vital signs: Vital Signs Temp 98.9 F 10/11/23 07:05 Pulse 104 H 10/11/23 07:05 Resp 16 10/11/23 07:05 BP 186/70 10/11/23 07:05 Pulse Ox 93 L 10/11/23 07:05 FiO2 Intake & Output 10/10/23 10/11/23 10/11/23 18:59 06:59 18:59 Intake Total 1250 Output Total 100 Balance 1150 Weight 36.7 kg Intake: IV 1250 Output: Estimated Blood Loss 100 Other: Voiding Method Toilet # Voids 3 # Bowel Movements 0 - Exam Left shoulder: Incision is clean, dry, and intact. The bulky dressing is in good condition. There is minimal soft tissue swelling and ecchymosis surrounding the medial and lateral aspects of the incision. Calf is soft, no tenderness with palpation. Plantar flexion, dorsiflexion, EHL, FHL are intact. Sensory exam to light touch throughout the extremity is intact, dorsal pedis pulses 2+. - Labs CBC & Chem 7: 10/10/23 17:45 Labs: Abnormal Lab Results - Last 24 Hours (Table) 10/10/23 10/10/23 10/10/23 Range/Units 11:32 15:45 17:45 WBC 14.0 H (3.8-10.6) k/uL RBC 3.38 L (3.80-5.40) m/uL Hgb 10.9 L (11.4-16.0) gm/dL MCV 102.2 H (80.0-100.0) fL Neutrophils # 12.5 H (1.3-7.7) k/uL Lymphocytes # 0.7 L (1.0-4.8) k/uL POC Glucose (mg/dL) 153 H 189 H (70-110) mg/dL 10/10/23 10/11/23 Range/Units 20:22 06:40 WBC (3.8-10.6) k/uL RBC (3.80-5.40) m/uL Hgb (11.4-16.0) gm/dL MCV (80.0-100.0) fL Neutrophils # (1.3-7.7) k/uL Lymphocytes # (1.0-4.8) k/uL POC Glucose (mg/dL) 176 H 174 H (70-110) mg/dL Assessment and Plan Assessment: 1. Displaced/comminuted left three-part proximal humerus fracture - Postop day #1 status post reverse left total shoulder arthroplasty cemented Plan: 1. Displaced/comminuted left three-part proximal humerus fracture - reverse left total shoulder arthroplasty performed yesterday, 10/10/2023. Patient stable at bedside this morning. Discharge home today 2. Appreciate medical management 3. Pain management - Tylenol; [place] 4. GI prophylaxis - senna 5. DVT prophylaxis - aspirin 6. PT/OT - nonweightbearing left upper extremity. Maintain left upper extremity in sling at all times. 7. Encourage incentive spirometer use 8. Discharge planning - home today Time with Patient: Less than 30
[2023-10-11 12:03] LABS: Glucose,Whole Blood 153 mg/dL (70-110)
[2023-10-11] MEDS: DAPAGLIFLOZIN PROPANEDIOL 10 MG TABLET PO SCH (12:16)
[2023-10-11] MEDS: PIOGLITAZONE 30 MG TAB PO SCH (12:16)
[2023-10-11] MEDS: CITALOPRAM HYDROBROMIDE 20 MG TAB PO SCH (12:16)
[2023-10-11] MEDS: PANTOPRAZOLE 40 MG TABLET PO SCH (12:16)
--- NOTE | 2023-10-11 15:36 | P.PN ---
Progress Note - Text Progress Note Date: 10/11/23 - Chief Complaint Left shoulder surgery - History of Present Illness Pleasant 83-year-old patient, follows with PCP Dr. Enriquez. Patient had a fall with injury to her left shoulder on August 20, 2023. She was treated in a sling. Had persistent progressive pain since the initial injury. Not able to use her left shoulder at all. Earlier today patient underwent left reverse total shoulder arthroplasty cemented. By Dr. Edilson Dugan. Postprocedure laying in bed. Left arm in a sling. Denies any pain. Patient is able to answer simple questions. Otherwise forgetful. October 10: Sitting up in the chair. Some pain at the shoulder. Did tolerate some diet. His son at the bedside. Able to answer simple questions. No nausea vomiting. Appears rather comfortable. Current medications reviewed Social history: Denies any smoking alcohol. Lives with her son Physical examination: VITAL SIGNS: 9 97.9, 104, 16, 181 x 670, 93% room air GENERAL: Sitting up in a chair EYES: Pupils equal. Conjunctiva glo l. HEENT: External appearance of nose and ears normal, oral cavity grossly normal. Decreased hearing NECK: JVD not raised; masses not palpable. HEART: First and second heart sounds are normal; no edema. LUNGS: Respiratory rate normal; clear to auscultation. ABDOMEN: Soft, nontender, liver spleen not palpable, no masses palpable. PSYCH: [Patient knows she is in the hospital but cannot exactly tell the name. She thinks this is spring. Mood affect normal. MUSCULOSKELETAL:No Clubbing/cyanosis;muscles-grossly intact. Left arm in a sling. Evidence of OA. INVESTIGATIONS, reviewed in the clinical context: October 10, 2023: White count 14 hemoglobin 10.9 platelets 253 October 02: White count 5.9 hemoglobin 11.2 platelets 263 potassium 4.7 creatinine 0.6 EKG tracing personally reviewed by me-[September 19] sinus rhythm. Nonspecific T/ST changes. Chest x-ray film personally reviewed by me-[September 19] nonspecific findings Assessment plan: -Left proximal humerus fracture secondary to fall on August 30, 2023. Undergone reverse left total shoulder arthroplasty. Left arm in a sling. Pain control. -CAD Aspirin, Lopressor -Depression and anxiety not otherwise specified Celexa -Essential hypertension Lopressor, Cozaar -Normocytic anemia. Cause unknown -Severe protein calorie malnutrition from decreased oral intake Increase oral intake -Hyperlipidemia Lipitor 40 mg nightly -Diabetes mellitus type 2 and oral hypoglycemic Actos. Glucophage. Farxiga.. 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 And the son at the bedside. Patient to follow-up with Dr. Enriquez Thank you Dr. Dugan Past Medical History Past Medical History: Coronary Artery Disease (CAD), Chest Pain / Angina, CVA/TIA, Diabetes Mellitus, GERD/Reflux, Hearing Disorder / Deafness, Hyperlipidemia, Hypertension, Myocardial Infarction ([place]), Osteoarthritis (OA), Thyroid Disorder, Vascular Disorder Additional Past Medical History / Comment(s): HX FATTY LIVER, SINUS PROBLEMS AT TIMES, SEASONAL ALLERGIES, HX TIA, HEART MURMUR, BILATERAL HEARING AID USE. Last Myocardial Infarction Date:: Unknown History of Any Multi-Drug Resistant Organisms: None Reported Past Surgical History: Coronary Bypass/CABG, Heart Catheterization, Heart Catheterization With Stent, Hysterectomy, Orthopedic Surgery, Tubal Ligation Additional Past Surgical History / Comment(s): RIGHT KNEE SURGERY, CATARACT SURGERY, ABD AORTOGRAM W/ RUNOFF, LEFT ILIAC ARTERY ANGIOGRAM WITH STENT X4, CABG-5 VESSELS. Past Anesthesia/Blood Transfusion Reactions: No Reported Reaction Date of Last Stent Placement:: 07-20-22 Past Psychological History: Anxiety, Depression Smoking Status: Never smoker Past Alcohol Use History: Rare Past Drug Use History: None Reported
== END 2023-10-11 12:55 | disposition home or self-care (01) ==
LOC: OR 10:50 → 4SSUR 15:30 → OR 10-11 12:55
PROVIDERS: ATTEND Orthopaedic Surgery
DX: S42.232A 3-part fracture of surgical neck of left humerus, initial encounter for closed fracture (principal); G89.18 Other acute postprocedural pain; I25.10 Atherosclerotic heart disease of native coronary artery without angina pectoris; K21.9 Gastro-esophageal reflux disease without esophagitis; E07.9 Disorder of thyroid, unspecified; I10 Essential (primary) hypertension; E78.5 Hyperlipidemia, unspecified; F41.9 Anxiety disorder, unspecified; F10.90 Alcohol use, unspecified, uncomplicated; F32.A Depression, unspecified; E11.9 Type 2 diabetes mellitus without complications; Z86.73 Personal history of transient ischemic attack (TIA), and cerebral infarction without residual deficits; Z95.5 Presence of coronary angioplasty implant and graft; Z90.710 Acquired absence of both cervix and uterus; Z98.51 Tubal ligation status; Z95.1 Presence of aortocoronary bypass graft; Z82.49 Family history of ischemic heart disease and other diseases of the circulatory system; Z82.3 Family history of stroke; Z79.84 Long term (current) use of oral hypoglycemic drugs; Z79.899 Other long term (current) drug therapy; Z79.890 Hormone replacement therapy; Z88.2 Allergy status to sulfonamides; Z88.1 Allergy status to other antibiotic agents; X58.XXXA Exposure to other specified factors, initial encounter
CPT/HCPCS: 64415; 85025; 73020; 23472; C1713; C1776; J2250; J0360; J1100; J2405; J0690 ×2; J1170

== ENCOUNTER → 2024-12-02 | Outpatient (CLI) | payer MEDICARE, BC ==
--- NOTE | 2024-12-02 13:43 | FL ---
EXAMINATION TYPE: FL barium swallow w video DATE OF EXAM: 12/02/2024 CLINICAL HISTORY: 84-year-old female R13.10, unspecified Dysphagia. TECHNIQUE: Deglutition study is performed utilizing thin liquid barium, barium thick pudding, and ba rium coated cracker. Total dose area product (DAP) 50 mGycm2 Total fluoroscopy time: 110 seconds. COMPARISON: None. FINDINGS: The oral and pharyngeal phases show satisfactory initiation and propagation with all modali ties tested. The patient is edentulous. Otherwise, normal mastication is seen with solid modalities t ested. There is transient penetration with thin liquids when utilizing a straw. No other penetration or aspiration is seen. No significant pharyngeal residue was appreciated. IMPRESSION: Transient penetration of thin liquid when utilizing a straw. No other penetration or asp iration is seen. Please refer to speech therapist notes for further details if necessary. [facility], , 12/02/2024 1:40 PM
== END | disposition home or self-care (01) ==
LOC: RADFLMAIN 11:56
PROVIDERS: ATTEND Family Medicine
DX: R13.10 Dysphagia, unspecified (principal)
CPT/HCPCS: 74230